=== PATIENT | male | born 1950 | race Caucasian/White ===

== ENCOUNTER 2019-01-14 00:38 | Inpatient (IN) | payer MEDICARE, SELFPAY | END 2019-01-19 16:10 | disposition home or self-care (01) | DRG 392 | PROVIDERS: Admitting Provider Family Medicine; Emergency Provider Family Medicine; PCP Internal Medicine; Visit Provider Internal Medicine | DX: K57.32 Diverticulitis of large intestine without perforation or abscess without bleeding (principal); I48.0 Paroxysmal atrial fibrillation; E11.9 Type 2 diabetes mellitus without complications; I25.10 Atherosclerotic heart disease of native coronary artery without angina pectoris; J44.9 Chronic obstructive pulmonary disease, unspecified; K22.70 Barrett's esophagus without dysplasia; D50.9 Iron deficiency anemia, unspecified; Z95.5 Presence of coronary angioplasty implant and graft | CPT/HCPCS: 36415; 71045; 74177; 80048; 80053; 81001; 83605; 83690; 83735; 84443; 85025; 85027; 86141; 87040; 87077; 87186; 93005; 96361; 96365; 96375; 99285; A9270; J0131; J0282; J1650; J2405; J2543; J7030; Q9967 ==

== ENCOUNTER 2019-10-17 08:48 | Emergency (ER) | payer MEDICARE, SELFPAY ==
--- NOTE | ~2019-10-17 | CT_ITS ---
EXAMINATION: CT abdomen pelvis wo con DATE: 10/17/2019 09:46 INDICATION: Left flank pain. Hematuria. TECHNIQUE: Computed tomography (CT) of the abdomen and pelvis was performed without intravenous contr ast. Automated exposure control and iterative reconstruction technique were employed. The dose-length product was 722.33 mGy-cm. COMPARISON: CT abdomen 04/13/2019 FINDINGS: The visualized portions of the lung bases are clear without pneumonia or pleural effusion. The heart size is normal. There are coronary artery calcifications. No pericardial effusion. There is a small sliding hiatal hernia. There is diffuse hepatic steatosis. The gallbladder, spleen, and adre nal glands are normal. There is a punctate calcification in the pancreas, consistent with chronic dejesus creatitis. There are cysts in the kidneys measuring up to 6.8 cm on the left. There is a 3.1 cm hemor rhagic cyst in right kidney. There are 6 stones in right kidney measuring up to 4 mm. There are 2 sto susanna in left kidney measuring up to 3 mm. The prostate is severely enlarged. There is a left inguinal hernia containing fat. There is diverticulosis of the colon without evidence of diverticulitis. There are no dilated loops of bowel. The appendix is normal. There are no pathologically enlarged lymph no mary. There is no free intraperitoneal fluid. There is severe lower lumbar spondylosis. IMPRESSION: 1. Bilateral nonobstructing kidney stones. 2. Small sliding hiatal hernia. 3. Left inguinal hernia containing fat. Reviewed, dictated and finalized at location A.
[2019-10-17 08:52] VITALS: BP 171/80; PULSE 92; RESP 20; TEMP 37.1; O2SAT 99
--- NOTE | 2019-10-17 09:10 | ED.MALEGU ---
HPI - Male Genitourinary General Chief complaint: Urogenital-Male Stated complaint: blood in urine Time Seen by Provider: 10/17/19 08:56 Source: patient Mode of arrival: ambulatory Limitations: no limitations History of Present Illness HPI Narrative: Patient is a 69-year-old male who presents to the emergency department with complaint of hematuria. Patient reports onset of symptoms this morning. Patient states he on occasion will notice a red spot in his underwear or blood in his semen, but has not had any issues with mirian hematuria until this morning. Patient has a history of kidney stones and states over the last couple of weeks he has been noticing left lateral flank pain intermittently. Patient reports that the pain is mild. He is on Xarelto for atrial fibrillation. Patient denies any dysuria, blood clots in his urine, or difficulty urinating aside from some mild hesitation in starting his stream in the morning due to his enlarged prostate. Patient denies any symptoms of urinary retention. Patient denies any fever, chills, or sweats. MD Complaint: other (Hematuria) Location: left flank Severity: mild Quality: dull Associated symptoms: Reports blood in urine Related Data Home Medications Medication Instructions Recorded Confirmed atorvastatin 40 mg tablet 40 mg PO DAILY 04/24/19 calcium polycarbophil 625 mg tablet 1,250 mg PO .qhs tablet 04/24/19 ferrous sulfate 325 mg (65 mg 325 mg PO BID 04/24/19 iron) tablet losartan 25 mg tablet 25 mg PO DAILY 04/24/19 metformin 500 mg tablet,extended 1,000 mg PO QPM tablet 04/24/19 release 24hr omeprazole 40 mg capsule,delayed 40 mg PO DAILY 04/24/19 release rivaroxaban 20 mg tablet 20 mg PO DAILY 04/24/19 sotalol 80 mg tablet 80 mg PO BID tablet 04/25/19 Allergies Allergy/AdvReac Type Severity Reaction Status Date / Time RAFFI Inhibitors Allergy Mild Cough Verified 10/17/19 08:54 ramipril Allergy Unknown Cough Verified 10/17/19 08:54 Review of Systems Review of Systems: All systems reviewed & are unremarkable except as noted in HPI and below Constitutional: Constitutional: Denies chills, Denies excessive sweating and Denies fever(s) Gastrointestinal: Gastrointestinal: Denies nausea and Denies vomiting Genitourinary: Genitourinary: Reports hematuria, Denies dysuria and Reports flank pain Musculoskeletal: Musculoskeletal: Denies back pain [facility] Past Medical History Medical History 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 BPH (benign prostatic hyperplasia) Chronic GERD Coronary artery disease involving [place] coronary artery of [place] heart Diabetes type 2, controlled Hypertensive heart disease without congestive heart failure Kidney stones Mixed hyperlipidemia Paroxysmal A-fib Right kidney mass Surgical History Surgical History History of coronary artery stent placement Social History Social History Smoking status: Never smoker Second hand tobacco smoke exposure: No Alcohol intake: current Drinks per week: 1 Substance use: never Substance use type: does not use Gender identity (if verbalized by the patient): Male Exam Const: General: cooperative, no acute distress and alert Nutritional Appearance: obese Orientation/consciousness: patient oriented x3 Limitations: no limitations Eyes: Conjunctivae: conjunctivae normal Pupils: Equal, round and reactive pupils present Resp: Effort & Inspection: normal respiratory effort Auscultation: clear to auscultation bilaterally Cardio: Rate: regular rate Rhythm: regular rhythm GI: GI Palp: Yes Soft to palpation and No Tenderness to palpation present (GI) Auscultation: normal bowel sounds Skin: General skin exam: normal color Neuro: General: patient oriented x3 Cognition (Neuro): normal cognition Speech: no
--- NOTE | 2019-10-17 09:12 | PC.NURSE ---
Called lab to add on Pt, PTT, INR.
[2019-10-17 09:14] LABS: Basophils Absolute Auto 0.1 K/mm3 (0.0-0.1); Basophils Percent Auto 1.6 % (0.2-1.2); Eosinophils Absolute Auto 0.2 K/mm3 (0-0.3); Eosinophils Percent Auto 2.7 % (0-4.4); Immature Granulocyte Absolute 0.02 K/mm3 (0.00-0.031); Immature Granulocyte Percent A 0.3 % (0-0.5); Lymphocytes Percent Auto 25.5 % (18.3-44.2); Mean Corpuscular Hemoglobin 30.6 pg (26-34); Mean Corpuscular Volume 90.1 fl (80-100); Mean Platelet Volume 9.6 fl (7.4-10.4); Monocytes Absolute Auto 0.8 K/mm3 (0.1-0.6); Monocytes Percent Auto 11.5 % (2.6-8.5); Neutrophils Absolute Auto 4.1 K/mm3 (1.3-6.7); Neutrophils Percent Auto 58.4 % (45.5-73.1); Platelet Count Result 283 k/mm3 (150-375); Red Blood Count 5.55 M/mm3 (4.6-6.20); Red Cell Distribution Width 13.2 % (11.5-14.5); White Blood Count 7.1 K/mm3 (4.5-10.0)
[2019-10-17 09:19] LABS: Add Urine Microscopic? YES; Appearance Urine Cloudy (Clear); Bilirubin Urine Negative (Negative); Blood Urine 3+ (Negative); Color Urine Red (Yellow); Glucose Urine UA Negative (Negative); Ketones Urine Negative (Negative); Leukocyte Esterase Ur Negative LEU/UL (Negative); Mucus Urine Rare /lpf; Nitrate Urine Positive (Negative); Protein Urine 2+ mg/dL (Negative); RBC Urine >75 /hpf (0-2); Squamous Epithelial Cell Urine Few /hpf (Few); Urobilinogen Urine Negative mg/dL (<2.0); WBC Clumps Urine Present /HPF; WBC Urine >75 /hpf
[2019-10-17 09:26] LABS: INR 1.4
[2019-10-17 09:27] LABS: Partial Thromboplastin Time 31.4 SECONDS (22.3-36.8)
[2019-10-17 09:29] LABS: Blood Urea Nitrogen 15 mg/dL (9-20); Calcium 9.4 mg/dL (8.4-10.2); Carbon Dioxide 26 mmol/L (22-30); Chloride 104 mmol/L (98-107); Estimated Glomerular Filt Rate > 60; Glucose 152 mg/dL (75-110); Potassium 4.4 mmol/L (3.4-5.0); Sodium 138 mmol/L (137-145)
[2019-10-17 10:49] VITALS: BP 165/85; PULSE 84; RESP 17; O2SAT 97
== END 2019-10-17 10:45 | disposition home or self-care (01) ==
PROVIDERS: Emergency Provider Emergency Medicine; PCP Family Medicine
DX: N30.01 Acute cystitis with hematuria (principal); Z79.01 Long term (current) use of anticoagulants; I48.0 Paroxysmal atrial fibrillation; N40.0 Benign prostatic hyperplasia without lower urinary tract symptoms; K22.70 Barrett's esophagus without dysplasia; K21.9 Gastro-esophageal reflux disease without esophagitis; E11.9 Type 2 diabetes mellitus without complications; I11.9 Hypertensive heart disease without heart failure; E78.2 Mixed hyperlipidemia; Z87.442 Personal history of urinary calculi; Z95.5 Presence of coronary angioplasty implant and graft; N20.0 Calculus of kidney; K44.9 Diaphragmatic hernia without obstruction or gangrene; K40.90 Unilateral inguinal hernia, without obstruction or gangrene, not specified as recurrent
CPT/HCPCS: 36415; 74176; 80048; 81001; 85025; 85610; 85730; 87077; 87086; 87088; 87186; 96365; 99284; J0696

== ENCOUNTER 2020-01-17 12:24 | Outpatient (CLI) | payer MEDICARE, SELFPAY ==
--- NOTE | ~2020-01-17 | XR_ITS ---
XR abdomen/kub 1V DATE: 01/17/2020 12:46 INDICATION: Right flank pain. Gross hematuria. TECHNIQUE: AP projection, 2 views COMPARISON: 01/17/2020 CT abdomen pelvis noncontrast examination FINDINGS: Several very faintly calcified lower pole right renal calculi are identified. Additional bi lateral calculi demonstrated on 10/17/2019 CT noncontrast examination of the abdomen and pelvis are no t radiographically evident. The psoas shadows are intact. No visceromegaly is detected. The bowel gas pattern is unremarkable, wi thout evidence of obstruction. Mild osteitis pubis. There are degenerative changes at the sacroiliac joints as well as some degenera tive changes of the thoracic and lumbar spine. IMPRESSION: Small faintly calcified lower pole right renal nonobstructing stones Reviewed, dictated and finalized at Location A. Reviewed, dictated and finalized at location A. IMPRESSION: Small faintly calcified lower pole right renal nonobstructing stone s
--- NOTE | ~2020-01-17 | CT_ITS ---
EXAMINATION: CT abdomen pelvis wo/w con DATE: 01/17/2020 13:51 INDICATION: Hematuria. Right flank pain. TECHNIQUE: Computed tomography (CT) of the abdomen and pelvis was performed with 100 mL Omnipaque-350 intravenous contrast. Automated exposure control and iterative reconstruction technique were employe d. The dose-length product was 3100.22 mGy-cm. COMPARISON: 10/17/2019 FINDINGS: Lung bases are clear. Heart size is normal. Atherosclerotic coronary artery calcifications. No perica rdial or pleural effusion. Small sliding-type hiatal hernia. Liver, gallbladder, spleen, pancreas and bilateral adrenal glands are normal. There is prominent colonic diverticulosis with a sigmoid and de scending colon predominance. There is no adjacent inflammatory change to suggest diverticulitis. Sma ll bowel and appendix are normal. Prostatomegaly. Small fat-containing left inguinal hernia. No free intraperitoneal gas or fluid. No pathologically enlarged abdominal or pelvic lymphadenopathy. Moderat e degenerative skeletal changes at the L5-S1 disc space and bilateral sacroiliac joints. Bilateral nephrolithiasis with 8 stones measuring up to 2-3 mm in the right kidney and 4 stones measu ring up to 3 mm in the left kidney. There is a 5 x 4 x 3 mm obstructing stone at the distal right ure ter situated approximately 3 cm proximal to the ureterovesicular junction with mild right hydroureter onephrosis and slight asymmetric delay in the excretion of contrast relative to the contralateral lef t kidney. There is mild periureteral stranding and mucosal enhancement along the distal right ureter consistent with inflammation which could be directly related to the stone or secondary ascending urin travis tract infection. Multiple bilateral nonenhancing parenchymal and parapelvic cysts both kidneys. T here is excreted contrast filling a small calyceal diverticulum at the site of focal cortical scarrin g at the lower pole of the left kidney. The entire left ureter is opacified with contrast with no celso dent filling defects or urothelial irregularities. Bladder is normal. IMPRESSION: 1. Bilateral nephrolithiasis with obstructing 5 mm stone at the distal right ureter with mild right h ydroureteronephrosis. There is associated urothelial enhancement at the distal right ureter and would correlate with urinalysis to exclude associated urinary tract infection. 2. Diverticulosis. 3. Small sliding-type hiatal hernia. 4. Small fat-containing left inguinal hernia. Reviewed, dictated and finalized at location A. IMPRESSION: 1. Bilateral nephrolithiasis with obstructing 5 mm stone at the distal right ur eter with mild right hydroureteronephrosis. There is associated urothelial enha ncement at the distal right ureter and would correlate with urinalysis to exclu de associated urinary tract infection. 2. Diverticulosis. 3. Small sliding-type hiatal hernia. 4. Small fat-containing left inguinal hernia.
[2020-01-17 13:25] LABS: Estimated Glomerular Filt Rate 46
== END 2020-01-17 12:25 | disposition home or self-care (01) ==
LOC: ANHIMG 12:33
PROVIDERS: PCP Family Medicine; Visit Provider Nurse Practitioner Adult Health
DX: R31.0 Gross hematuria (principal); N20.0 Calculus of kidney; N13.30 Unspecified hydronephrosis; K57.90 Diverticulosis of intestine, part unspecified, without perforation or abscess without bleeding; K44.9 Diaphragmatic hernia without obstruction or gangrene; K40.90 Unilateral inguinal hernia, without obstruction or gangrene, not specified as recurrent
CPT/HCPCS: 36415; 74018; 74178; Q9967

== ENCOUNTER 2020-01-19 01:57 | Outpatient (CLI) | payer MEDICARE, SELFPAY ==
[2020-01-19 18:01] LABS: SARS-CoV-2 RNA PCR Negative
== END 2020-01-19 01:58 | disposition home or self-care (01) ==
LOC: ANHCOVIDDT 01:59
PROVIDERS: PCP Family Medicine; Visit Provider Urology
DX: Z01.812 Encounter for preprocedural laboratory examination (principal); Z20.828 Contact with and (suspected) exposure to other viral communicable diseases
CPT/HCPCS: 87635; C9803; U0003

== ENCOUNTER 2020-01-22 04:22 | Day surgery (SDC) | payer MEDICARE, SELFPAY ==
[2020-01-18 13:09] VITALS: BMI 35.9
[2020-01-22] VITALS (8 sets, daily range): BP systolic 102–145; BP diastolic 62–87; PULSE 67–80; RESP 12–20; TEMP 35.9–36.6; O2SAT 96–99
--- NOTE | ~2020-01-22 | XR_ITS ---
EXAMINATION: XR retrograde pyelo w/stent RT EXAM DATE: 01/22/2020 15:25 INDICATION: Right ureteral stone. TECHNIQUE: Fluoroscopy used during XR retrograde pyelo w/stent RT performed by Dr. Galdino gandara MD. The DAP for this procedure was 1.4 mGym2. FINDINGS: Right ureter was cannulated, injected. There is mild right-sided hydronephrosis. A double- J ureteral stent was placed. Correlate with procedure note. IMPRESSION: Fluoroscopy used during XR retrograde pyelo w/stent RT. Reviewed, dictated and finalized at location B.
--- NOTE | ~2020-01-22 | CT_ITS ---
EXAMINATION: CT abdomen pelvis wo con DATE: 01/22/2020 13:19 INDICATION: Right ureteral calculus TECHNIQUE: Computed tomography (CT) of the abdomen and pelvis was performed without intravenous contr ast. The dose-length product (DLP) was 885.74 mGy-cm. Automated exposure control and iterative recons truction technique were employed. COMPARISON: 01/17/2020 FINDINGS: The lung bases are clear. The heart size is normal. Coronary artery atherosclerosis is note d. The liver, spleen, pancreas, gallbladder, and adrenal glands are normal. There is a small sliding hiatal hernia. There is a 6 mm stone in the right distal ureter which causes mild right hydroureteron ephrosis. Hyperdense material in the right ureter could reflect hemorrhage. Multiple nonobstructing r ight kidney stones are present which measure 2 to 3 mm. Nonobstructing stones of the left kidney elana ure up to 4 mm. Cysts of the kidneys measure up to 6.7 cm on the left. No pathologically enlarged abd ominal or pelvic lymph nodes are identified. Colonic diverticulosis is present without evidence of di verticulitis. There is enlargement and calcification of the prostate. A fat-containing left inguinal hernia is noted. There is no free intraperitoneal gas or evidence of bowel obstruction. There is mode rate lumbar spondylosis. IMPRESSION: 1. 6 mm stone of the right distal ureter with mild right hydroureteronephrosis. Hyperattenuating mate rial in the right ureter likely reflects hemorrhage. 2. Bilateral nephrolithiasis. Reviewed, dictated and finalized at location A. IMPRESSION: 1. 6 mm stone of the right distal ureter with mild right hydroureteronephrosis. Hyperattenuating material in the right ureter likely reflects hemorrhage. 2. Bilateral nephrolithiasis.
[2020-01-22] MEDS: LACTATED RINGERS 1,000 ML 30 ML IV CONT ×2 (11:24→15:32)
[2020-01-22 11:31] LABS: Glucose Point of Care 133 (65-105)
--- NOTE | 2020-01-22 12:26 | WPDANESEPPF ---
Anes - Initial Pre Proc Eval Procedure: Operation Date: 01/22/20 13:00 Proposed Procedures p Cystoscopy, Right Ureteroscopy, Right Stone Extraction, Possible Right Stent Placement, Possible Right Retrograde Pyelogram - Galdino Reddy MD s Holmium Laser Procedure - Galdino Reddy MD Date/Time: 01/22/20 12:26 Surgeon: Galdino Reddy MD Pre Op Diagnosis: right ureteral stone Patient Data Age: 70 Gender: M Height: 5 ft 10 in Weight: 122 kg Last Vital Signs Temp 35.9 C L 01/22/20 11:32 Pulse 77 01/22/20 11:32 BP 138/62 01/22/20 11:32 Pulse Ox 97 01/22/20 11:32 Allergies Allergy/AdvReac Type Severity Reaction Status Date / Time RAFFI Inhibitors Allergy Mild Cough Verified 12/12/19 08:55 ramipril Allergy Unknown Cough Verified 12/12/19 08:55 Home Medications Medication Instructions Recorded Confirmed Type atorvastatin 40 mg tablet 40 mg PO DAILY 04/24/19 01/18/20 History calcium polycarbophil 625 mg tablet 1,250 mg PO .qhs tablet 04/24/19 01/18/20 History ferrous sulfate 325 mg (65 mg 325 mg PO BID 04/24/19 01/18/20 History iron) tablet metformin 500 mg tablet,extended 1,000 mg PO QPM tablet 04/24/19 01/18/20 History release 24hr omeprazole 40 mg capsule,delayed 40 mg PO DAILY 04/24/19 01/18/20 History release rivaroxaban 20 mg tablet 20 mg PO DAILY 04/24/19 01/18/20 History sotalol 80 mg tablet 80 mg PO BID tablet 04/25/19 01/18/20 History trazodone 100 mg tablet 100 mg PO .QHS #90 tablet 10/08/19 01/18/20 Rx losartan 50 mg tablet 50 mg PO BID #90 tablet 12/12/19 01/18/20 Rx Laboratory Tests 01/22/20 11:26 POC Capillary Glucose 133 mg/dl H mg/dl (65-105) Patient hx anesthesia problems: none Family hx anesthesia problems: none PMFSH Past Medical History Medical History 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 BPH (benign prostatic hyperplasia) Chronic GERD Coronary artery disease involving [place] coronary artery of [place] heart Diabetes type 2, controlled Hypertensive heart disease without congestive heart failure Kidney stones Mixed hyperlipidemia Paroxysmal A-fib Right kidney mass Surgical History Surgical History History of coronary artery stent placement Social History Social History Smoking status: Never smoker Second hand tobacco smoke exposure: No Alcohol intake: current Drinks per week: 1 Alcohol use details: 1 glass wine/week Substance use: never Substance use type: does not use Living arrangements: with family Gender identity (if verbalized by the patient): Male Spiritual care concerns: No Anes - Eval Final PreProcedure Day of Procedure 01/22/20 12:26 Patient weight: obese Heart: regular rate and rhythm Lungs: clear to auscultation Airway: Mallampati scale class II Neurological: alert and oriented Last oral intake: >/= 8 hours ASA classification: III Emergent: no Anesthetic plan: proceed Anesthesia type and monitoring: general LMA and standard monitoring Informed Consent: The patient's anesthetic plan and its attendant risks and benefits were discussed with the patient/family/POA. Questions were solicited and answers provided to the satisfaction of the patient/family/POA.
--- NOTE | 2020-01-22 12:40 | WPDHPUPDATE1 ---
History and Physical Update Update Date/Time: 01/22/20 12:40 History and Physical has been reviewed, including an updated exam of the patient. There are NO changes in the patient's condition. Risks, benefits, and alternatives have been discussed and questions answered. Patient agrees to proceed with procedure.
--- NOTE | 2020-01-22 13:23 | SUR.PREOP ---
1304- pt to CT to have a ABD and pelvis CT. his , Kayleigh sebastian
--- NOTE | 2020-01-22 14:00 | SUR.PREOP ---
1350- Lalit RN called to Pre op area to update pt is going to surgery today. pt updated and Kayleigh, called to update.
--- NOTE | 2020-01-22 14:15 | WPDHPUPDATE1 ---
History and Physical Update Update Date/Time: 01/22/20 14:15 History and Physical has been reviewed, including an updated exam of the patient. There are NO changes in the patient's condition. Risks, benefits, and alternatives have been discussed and questions answered. Patient agrees to proceed with procedure. Plan for cystoscopy, right ureteroscopy, right rpg, stone extraction, possible holmium laser and stent placement.
[2020-01-22] MEDS: ceFAZolin 2 GM/D5W 50 ML 2 GM/50 ML BAG IVPB (14:29)
[2020-01-22] MEDS: LIDOCAINE HCL 2% GEL UROJET 10 ML PKG MUCOUS MEM (14:44)
--- NOTE | 2020-01-22 15:22 | P.OP_ITS ---
Procedure Note - Detailed Date of procedure: 01/22/20 Pre-op diagnosis: right ureteral stone Post-op diagnosis: same Procedure performed: cystoscopy, right retrograde pyelogram, right ureteroscopy with stone extraction, right ureteral stent placement 4.8 [place] contour Description of procedure: patient is taken to the operative suite and correctly identified. Once anesthesia was obtained he was placed in the dorsal lithotomy position and prepped and draped usual sterile fashion. Twenty-two [place] scope inserted into the bladder his enlarged obstructing prostate with an elevated median bar. He also has a median sized middle lobe. The right ureteral orifice was visualized it was somewhat difficult to cannulate due to the angle from the enlarged prostate. We were able to manipulate a Glidewire up to the kidney. We then placed a rigid ureteral scope into the orifice but could not manipulate it up more proximally. We thus placed in ureteral access sheath. A flexible ureteral scope was inserted. He did have some old blood in the ureter. The stone was visualized. Using escape basket were able to retrieve in its entirety and sent for analysis. Pyelogram was then performed to confirm placement of the stent in the renal pelvis. A 4.8 contour stent was then placed with the proximal end coiled in the renal pelvis and the distal end in the bladder. Bladder is drained 2% viscous lidocaine was inserted urethra. Due to the enlarged prostate it did use. We placed an [address] connected to continuous bladder irrigation. Will see if we can wean in recovery room. If it clears will go home with a Gr catheter and have it removed in the morning. He will then follow up in a week's time for stent removal. He also had numerous small little bladder calculi measuring approximately 1 mm each. These were ext racted. Anesthesia: GLMA Surgeon: Galdino Reddy MD Drains: Yes Packing: No Pathology: yes Complications: No immediate complications Condition: stable Disposition: PACU
--- NOTE | 2020-01-22 18:21 | SUR.PHASEII ---
No more vitals taken after 1709. Patient and spouse given d/c instructions including step by step of care for a catheter and removal of a catheter.
== END 2020-01-22 17:55 | disposition home or self-care (01) ==
PROVIDERS: PCP Family Medicine; Visit Provider Urology
PROC: (CPT 52352; principal; 2020-01-22 13:00)
DX: N20.1 Calculus of ureter (principal); R31.0 Gross hematuria
CPT/HCPCS: 52332; 74176; 74420; 82365; 88300; A9270; C1758; C1769; C1894; C2617; J0690; J1100; J2250; J2370; J2405; J2704; J3010; J7120; Q9966

== ENCOUNTER 2020-01-31 11:23 | Emergency (ER) | payer MEDICARE, SELFPAY ==
--- NOTE | ~2020-01-31 | XR_ITS ---
EXAMINATION: XR chest 1V portable DATE: 01/31/2020 12:47 INDICATION: Fever TECHNIQUE: frontal view of the chest was obtained. COMPARISON: Chest radiograph dated 01/14/2019 FINDINGS: Chronic mild linear discoid atelectasis/scarring at the lateral left lower lung zone. No new airspace opacities, pulmonary edema, pleural effusion or pneumothorax. The cardiomediastinal silhouette is no rmal. IMPRESSION: 1. Chronic mild lingular discoid atelectasis/scarring. Reviewed, dictated and finalized at location A.
[2020-01-31 11:31] VITALS: BP 133/77; PULSE 92; RESP 20; TEMP 37.8; O2SAT 98
[2020-01-31 11:40] LABS: Glucose Point of Care 136 (65-105)
--- NOTE | 2020-01-31 11:48 | ED.GENADULT ---
HPI - General Adult General Chief complaint: Urogenital-Male Stated complaint: FEVER S/P STONE RETRIEVAL 18AUG Time Seen by Provider: 01/31/20 11:30 Source: RN notes reviewed History of Present Illness HPI narrative: Patient presents emergency department from home for fever. Patient states he developed fever 2 days ago. Patient states he has a history of having a kidney stone removal by Dr. Reddy on the of the month. He denies having any cough shortness of breath abdominal pain nausea vomiting diarrhea or any other symptoms. States he took ibuprofen today but denies any Tylenol use Related Data Home Medications Medication Instructions Recorded Confirmed atorvastatin 40 mg tablet 40 mg PO DAILY 04/24/19 01/18/20 calcium polycarbophil 625 mg tablet 1,250 mg PO .qhs tablet 04/24/19 01/18/20 ferrous sulfate 325 mg (65 mg 325 mg PO BID 04/24/19 01/18/20 iron) tablet metformin 500 mg tablet,extended 1,000 mg PO QPM tablet 04/24/19 01/18/20 release 24hr omeprazole 40 mg capsule,delayed 40 mg PO DAILY 04/24/19 01/18/20 release rivaroxaban 20 mg tablet 20 mg PO DAILY 04/24/19 01/18/20 sotalol 80 mg tablet 80 mg PO BID tablet 04/25/19 01/18/20 Allergies Allergy/AdvReac Type Severity Reaction Status Date / Time RAFFI Inhibitors Allergy Mild Cough Verified 01/31/20 11:39 ramipril Allergy Unknown Cough Verified 01/31/20 11:39 Review of Systems Review of Systems: Narrative: Gen.: Reports fever ENT: Denies congestion Respiratory: Denies shortness of breath or cough CV: Denies chest pain or palpitations GI: Denies abdominal pain nausea, emesis or diarrhea denies burning, urgency, frequency or hematuria, reports recent kidney stone Musculoskeletal: Denies back pain or muscle pain Neuro: Denies numbness, tingling, weakness or focal weakness Skin: Denies rash Except as documented, all other systems reviewed and negative PMFSH Past Medical History Medical History 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 BPH (benign prostatic hyperplasia) Chronic GERD Coronary artery disease involving [place] coronary artery of [place] heart Diabetes type 2, controlled Hypertensive heart disease without congestive heart failure Kidney stones Mixed hyperlipidemia Paroxysmal A-fib Right kidney mass Social History Social History Smoking status: Never smoker Second hand tobacco smoke exposure: No Alcohol intake: current Drinks per week: 1 Substance use: never Substance use type: does not use Gender identity (if verbalized by the patient): Male Spiritual care concerns: No Exam Narrative: Exam Narrative: APPEARANCE: No acute distress, nontoxic, resting in bed EYES: EOMI HEENT: Normocephalic, atraumatic, OMM RESPIRATORY: No respiratory distress Clear to auscultation bilaterally with no rhonchi wheezing or rales. CARDIOVASCULAR: Regular rate and rhythm without murmurs rubs or gallops. ABDOMINAL: Soft, nontender, nondistended, no rebound or guarding MUSCULOSKELETAl: Moves all extremities. No clubbing, cyanosis or edema. NEURO: Awake and alert. Following commands, speech normal, no focal deficits SKIN:: Warm, dry. No rashes lesions or abrasions PSYCHIATRIC: Normal affect/mood, Course Course Emergency Course: Reviewed old records Discussed with Dr. Monterroso presentation work-up. Recommends patient be started on Levaquin at this time with follow-up as an outpatient Discussed with patient results of workup and diagnosis. Discussed need for follow-up with primary care, proper use of medication, and reasons to return to the emergency department. Patient understands and agrees to current treatment plan patient states he is scheduled to get a outpatient COVID swab today will obtain swab while patient is in the ED Reviewed patient's medications patient is on sotalol will switch to Omnicef Vital Signs Vital signs: V
[2020-01-31] MEDS: SODIUM CHLORIDE 0.9% IV 1,000 ML 999 ML IV CONT (12:13)
[2020-01-31 12:23] LABS: Basophils Absolute Auto 0.1 K/mm3 (0.0-0.1); Basophils Percent Auto 0.6 % (0.2-1.2); Eosinophils Absolute Auto 0.1 K/mm3 (0-0.3); Eosinophils Percent Auto 0.3 % (0-4.4); Hematocrit 42.8 % (42.0-52.0); Hemoglobin 14.4 g/dL (14.0-18.0); Immature Granulocyte Absolute 0.13 K/mm3 (0.00-0.031); Immature Granulocyte Percent A 0.7 % (0-0.5); Lymphocytes Absolute Auto 1.13 K/mm3 (0.9-3.2); Lymphocytes Percent Auto 6.4 % (18.3-44.2); Mean Corpuscular HGB Conc 33.6 g/dl (32-36); Mean Corpuscular Hemoglobin 29.8 pg (26-34); Mean Corpuscular Volume 88.4 fl (80-100); Mean Platelet Volume 9.3 fl (7.4-10.4); Monocytes Absolute Auto 1.6 K/mm3 (0.1-0.6); Neutrophils Absolute Auto 14.7 K/mm3 (1.3-6.7); Platelet Count Result 337 k/mm3 (150-375); Red Blood Count 4.84 M/mm3 (4.6-6.20); White Blood Count 17.7 K/mm3 (4.5-10.0)
[2020-01-31 12:36] LABS: Lactic Acid Reflex 1.5 mmol/L (0.7-2.1)
[2020-01-31 12:37] LABS: Alanine Aminotransferase 26 U/L (4-50); Albumin Level 4.3 g/dL (3.5-5.1); Alkaline Phosphatase 104 U/L (38-126); Anion Gap 10 mmol/L (8-16); Aspartate Amino Transferase 33 U/L (17-59); Bilirubin,Total 1.1 mg/dL (0.2-1.3); Blood Urea Nitrogen 19 mg/dL (9-20); Calcium 9.3 mg/dL (8.4-10.2); Carbon Dioxide 21 mmol/L (22-30); Chloride 100 mmol/L (98-107); Estimated CRCL calculation 76 ml/min; Estimated Glomerular Filt Rate > 60; Glucose 138 mg/dL (75-110); Potassium 3.9 mmol/L (3.4-5.0); Sodium 131 mmol/L (137-145)
[2020-01-31 12:38] LABS: Add Urine Microscopic? YES; Appearance Urine Cloudy (Clear); Bacteria Urine Trace /hpf; Bilirubin Urine Negative (Negative); Blood Urine 3+ (Negative); Color Urine Amber (Yellow); Glucose Urine UA Negative (Negative); Ketones Urine Negative (Negative); Leukocyte Esterase Ur 2+ LEU/UL (Negative); Mucus Urine Few /lpf; Nitrate Urine Negative (Negative); Protein Urine 2+ mg/dL (Negative); RBC Urine >75 /hpf (0-2); Specific Grav Ur 1.023 (1.001-1.035); Urobilinogen Urine Negative mg/dL (<2.0); WBC Urine 51-75 /hpf
[2020-01-31 13:17] VITALS: BP 120/66; PULSE 88; RESP 16; TEMP 37.2; O2SAT 97
[2020-02-01 00:41] LABS: SARS-CoV-2 RNA PCR Negative
== END 2020-01-31 13:56 | disposition home or self-care (01) ==
PROVIDERS: Emergency Provider Emergency Medicine; PCP Family Medicine
DX: N39.0 Urinary tract infection, site not specified (principal); Z20.828 Contact with and (suspected) exposure to other viral communicable diseases; K22.70 Barrett's esophagus without dysplasia; K21.9 Gastro-esophageal reflux disease without esophagitis; I25.10 Atherosclerotic heart disease of native coronary artery without angina pectoris; E11.9 Type 2 diabetes mellitus without complications; I11.9 Hypertensive heart disease without heart failure; Z87.442 Personal history of urinary calculi; E78.2 Mixed hyperlipidemia; I48.0 Paroxysmal atrial fibrillation; Z79.01 Long term (current) use of anticoagulants; Z79.84 Long term (current) use of oral hypoglycemic drugs
CPT/HCPCS: 36415; 71045; 80053; 81001; 82948; 83605; 85025; 87040; 87077; 87086; 87088; 87186; 87635; 96365; 96366; 96368; 99284; C9803; J0131; J1956; J7030; U0003

== ENCOUNTER 2020-02-28 10:17 | Outpatient (CLI) | payer MEDICARE, SELFPAY ==
--- NOTE | ~2020-02-28 | XR_ITS ---
XR abdomen/kub 1V 02/28/2020 10:36 Indication: Renal stones Procedure: KUB Comparison: 01/17/2020 Findings: There are punctate right renal stones. Bowel gas pattern nonobstructive. No stones are iden tified in the expected course of ureters. No acute osseous abnormality. Impression: 1: Right nephrolithiasis. Reviewed, dictated and finalized at location A. Impression: 1: Right nephrolithiasis.
== END 2020-02-28 10:18 | disposition home or self-care (01) ==
LOC: ANHIMG 10:22
PROVIDERS: PCP Family Medicine; Visit Provider Urology
DX: N20.1 Calculus of ureter (principal); N20.0 Calculus of kidney
CPT/HCPCS: 74018

== ENCOUNTER 2020-10-09 14:37 | Outpatient (CLI) | payer MEDICARE, SELFPAY ==
--- NOTE | ~2020-10-09 | XR_ITS ---
EXAMINATION: XR abdomen/kub 1V DATE: 10/09/2020 15:02 INDICATION: Gross hematuria. TECHNIQUE: A supine view of the abdomen on 2 radiographs was obtained. COMPARISON: CT abdomen and pelvis 10/09/2020 FINDINGS: There are no dilated loops of bowel. The kidneys are obscured by bowel. IMPRESSION: 1. No visible urolithiasis. Kidneys obscured by bowel. Reviewed, dictated and finalized at location A.
--- NOTE | ~2020-10-09 | CT_ITS ---
EXAMINATION: CT abdomen pelvis wo/w con DATE: 10/09/2020 15:39 INDICATION: Gross hematuria. TECHNIQUE: Computed tomography (CT) of the abdomen and pelvis was performed without and with intraven ous contrast using a total of 130 mL Omnipaque-350 intravenous contrast with a double-bolus technique for simultaneous opacification of the renal parenchyma and renal collecting system. Automated exposu re control and iterative reconstruction technique were employed. The dose-length product was 2816.89 mGy-cm. COMPARISON: CT abdomen and pelvis 01/22/2020 FINDINGS: The visualized portions of the lung bases demonstrate mild atelectasis. There is a pneumatocele in ri ght lower lobe. No pleural effusion. The heart size is normal. There are coronary artery calcificatio ns. No pericardial effusion. There is bilateral gynecomastia. There is a small sliding hiatal hernia. There is diffuse hepatic steatosis. The liver, spleen, pancreas, and adrenal glands are normal. Ther e are simple cysts in the kidneys measuring up to 6.9 cm on the left. There is a 3.0 cm hemorrhagic c yst in right kidney. There is an 11 mm hemorrhagic cyst in right kidney. There are approximately 7 st ones in right kidney measuring up to 2 mm. There are parenchymal calcifications in right kidney. Ther e are approximately 4 stones in left kidney measuring up to 3 mm. There is a small area of focal volu me loss in left kidney. The ureters are well opacified and are normal. The bladder is normal. The pro state is severely enlarged. There is a left inguinal hernia containing fat. There is diverticulosis o f the colon without evidence of diverticulitis. The appendix is normal. There is an umbilical hernia containing fat. There are no pathologically enlarged lymph nodes. There is no free intraperitoneal fl uid. There is severe lower lumbar spondylosis. IMPRESSION: 1. Small bilateral nonobstructing kidney stones. 2. Severely enlarged prostate. Reviewed, dictated and finalized at location A.
[2020-10-09 15:17] LABS: Estimated Glomerular Filt Rate > 60
== END 2020-10-09 14:38 | disposition home or self-care (01) ==
PROVIDERS: PCP Family Medicine; Visit Provider Urology
DX: R31.0 Gross hematuria (principal); N40.0 Benign prostatic hyperplasia without lower urinary tract symptoms; N20.0 Calculus of kidney
CPT/HCPCS: 74018; 74178; Q9967

== ENCOUNTER → 2021-05-12 13:34 | Outpatient (CLI) | payer MEDICARE, SELFPAY ==
--- NOTE | ~2021-05-12 | XR_ITS ---
EXAMINATION: XR chest 2V EXAM DATE: 05/12/2021 13:56 INDICATION: R05.3 - Chronic cough. TECHNIQUE: Frontal and lateral projections of the chest obtained and reviewed. Comparison is made to prior examination from 01/14/2019. FINDINGS: The lungs are clear. There are no pleural effusions. The cardiomediastinal silhouette is within normal limits. There is no pneumothorax suspected. The bones and soft tissues are unremarkab le. IMPRESSION: No acute cardiopulmonary findings. Reviewed, dictated and finalized at location A. G ROOM HAND
== END ==
PROVIDERS: PCP Family Medicine; Visit Provider Family Medicine
DX: R05.3 Chronic cough (principal)
CPT/HCPCS: 71046

== ENCOUNTER 2021-07-14 00:51 | Day surgery (SDC) | payer MEDICARE, SELFPAY ==
[2021-07-06 14:27] VITALS: BMI 35.9
[2021-07-14 07:52] VITALS: BP 150/83; PULSE 63; RESP 20; TEMP 35.7; O2SAT 96
[2021-07-14] MEDS: LACTATED RINGERS 1,000 ML 150 ML IV CONT (08:05)
[2021-07-14 08:07] LABS: Glucose Point of Care 191 mg/dl (65-105)
--- NOTE | 2021-07-14 08:14 | WPDGICN ---
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 Stable on omeprazole 40mg p.o. daily. Plan is for surveillance EGD now on at 3 year intervals in the future. Continued anti-reflux measures encourage. Further recommendations will be given after endoscopy. GI Consult Note Consult date/time: 07/14/21 08:14 HPI: Neo Wooten is a 71 year old male Presents for screening EGD. Patient is known to have Ware's esophagus. Last endoscopy 5 years ago was unremarkable. Patient denies abdominal pain. He has had no bleeding. Family history is noncontributory. He has no difficulty swallowing. He denies heartburn while maintained on omeprazole 40mg p.o. daily. He presents today for screening exam. 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 BPH (benign prostatic hyperplasia) Chronic GERD Coronary artery disease involving [place] coronary artery of [place] heart Diabetes mellitus type II, uncontrolled Diabetes type 2, controlled Hypertensive heart disease without congestive heart failure Kidney stones Mixed hyperlipidemia Paroxysmal A-fib Right kidney mass Surgical History Surgical History History of coronary artery stent placement Social History Social History Smoking status: Never smoker Second hand tobacco smoke exposure: No Alcohol intake: current Drinks per week: 1 Alcohol use details: 1 glass wine/week Substance use: never Substance use type: does not use Living arrangements: with family Gender identity (if verbalized by the patient): Male Sexual Orientation (if Verbalized by the Patient): Straight or Heterosexual Spiritual care concerns: No Meds Home Medications and Allergies Home Medications Medication Instructions Recorded Confirmed Type atorvastatin 40 mg tablet 40 mg PO DAILY 04/24/19 07/06/21 History calcium polycarbophil 625 mg tablet 1,250 mg PO .qhs tablet 04/24/19 07/06/21 History ferrous sulfate 325 mg (65 mg 325 mg PO BID 04/24/19 07/06/21 History iron) tablet rivaroxaban 20 mg tablet 20 mg PO DAILY 04/24/19 07/06/21 History sotalol 80 mg tablet 80 mg PO BID tablet 04/25/19 07/06/21 History finasteride 5 mg tablet 5 mg PO DAILY 04/09/20 07/06/21 History omeprazole 40 mg capsule,delayed 40 mg PO DAILY #90 cap 05/11/21 07/06/21 Rx release metformin 500 mg tablet,extended 500 mg PO BID 90 Days #180 tablet 05/12/21 07/06/21 Rx release 24hr losartan 50 mg tablet 50 mg PO DAILY #90 tablet 06/09/21 07/06/21 Rx trazodone 100 mg PO HS 07/06/21 07/06/21 History Allergies Allergy/AdvReac Type Severity Reaction Status Date / Time ramipril Allergy Intermediate Cough Verified 07/14/21 07:51 RAFFI Inhibitors Allergy Mild Cough Verified 07/14/21 07:51 Vital Signs Vital Signs - 24 hr 07/14/21 07:52 Temperature 96.3 F L Pulse Rate 63 Respiratory Rate 20 Blood Pressure 150/83 H Pulse Oximetry 96 Exam Narrative: Physical exam reveals patient to be alert. Vital signs stable. HEENT exam is unremarkable. Patient is anicteric. Lungs are clear to auscultation and percussion. Heart is without murmur or extra sounds. Abdomen is obese. Bowel sounds are present soft nontender with no organomegaly. Digital external rectal exam deferred at this time.
--- NOTE | 2021-07-14 08:38 | WPDANESEPPF ---
Anes - Initial Pre Proc Eval Procedure: Operation Date: 07/14/21 09:00 Proposed Procedures p Esophagogastroduodenoscopy - Pavel Frank MD Date/Time: 07/14/21 08:38 Surgeon: Pavel Frank MD Pre Op Diagnosis: evangelista's esophagus Patient Data Age: 71 Gender: M Height: 1.78 m Weight: 114.3 kg Last Vital Signs Temp 96.3 F L 07/14/21 07:52 Pulse 63 07/14/21 07:52 Resp 20 07/14/21 07:52 BP 150/83 H 07/14/21 07:52 Pulse Ox 96 07/14/21 07:52 Allergies Allergy/AdvReac Type Severity Reaction Status Date / Time ramipril Allergy Intermediate Cough Verified 07/14/21 07:51 RAFFI Inhibitors Allergy Mild Cough Verified 07/14/21 07:51 Home Medications Medication Instructions Recorded Confirmed Type atorvastatin 40 mg tablet 40 mg PO DAILY 04/24/19 07/06/21 History calcium polycarbophil 625 mg tablet 1,250 mg PO .qhs tablet 04/24/19 07/06/21 History ferrous sulfate 325 mg (65 mg 325 mg PO BID 04/24/19 07/06/21 History iron) tablet rivaroxaban 20 mg tablet 20 mg PO DAILY 04/24/19 07/06/21 History sotalol 80 mg tablet 80 mg PO BID tablet 04/25/19 07/06/21 History finasteride 5 mg tablet 5 mg PO DAILY 04/09/20 07/06/21 History omeprazole 40 mg capsule,delayed 40 mg PO DAILY #90 cap 05/11/21 07/06/21 Rx release metformin 500 mg tablet,extended 500 mg PO BID 90 Days #180 tablet 05/12/21 07/06/21 Rx release 24hr losartan 50 mg tablet 50 mg PO DAILY #90 tablet 06/09/21 07/06/21 Rx trazodone 100 mg PO HS 07/06/21 07/06/21 History Laboratory Tests 07/14/21 07:59 POC Capillary Glucose 191 mg/dl H mg/dl (65-105) Patient hx anesthesia problems: none Family hx anesthesia problems: none Results Review: All pre-operative results and documents have been reviewed as part of the pre-operative evaluation. [facility] Past Medical History Medical History (Updated 05/12/21 @ 12:48 by Ranjan Mckee MD) Evangelista's esophagus without dysplasia BPH (benign prostatic hyperplasia) Chronic GERD Coronary artery disease involving [place] coronary artery of [place] heart Diabetes mellitus type II, uncontrolled Diabetes type 2, controlled Hypertensive heart disease without congestive heart failure Kidney stones Mixed hyperlipidemia Paroxysmal A-fib Right kidney mass Surgical History Surgical History History of coronary artery stent placement Social History Social History Smoking status: Never smoker Second hand tobacco smoke exposure: No Alcohol intake: current Drinks per week: 1 Alcohol use details: 1 glass wine/week Substance use: never Substance use type: does not use Living arrangements: with family Gender identity (if verbalized by the patient): Male Sexual Orientation (if Verbalized by the Patient): Straight or Heterosexual Spiritual care concerns: No Anes - Eval Final PreProcedure Day of Procedure 07/14/21 08:38 Patient weight: obese Heart: irregular rhythm Lungs: clear to auscultation Airway: Mallampati scale class II Neurological: alert and oriented Last oral intake: >/= 8 hours ASA classification: III Emergent: no Anesthetic plan: proceed Anesthesia type and monitoring: general GIVS and standard monitoring Results Review: All pre-operative results and documents have been reviewed as part of the pre-operative evaluation. Informed Consent: The patient's anesthetic plan and its attendant risks and benefits were discussed with the patient/family/POA. Questions were solicited and answers provided to the satisfaction of the patient/family/POA.
[2021-07-14 09:02] VITALS: BP 124/89; PULSE 75; RESP 20; O2SAT 96
[2021-07-14 09:12] VITALS: BP 143/80; PULSE 74; RESP 19; O2SAT 97
[2021-07-14 09:22] VITALS: BP 128/77; PULSE 71; RESP 17; O2SAT 97
== END 2021-07-14 09:35 | disposition home or self-care (01) ==
PROVIDERS: PCP Family Medicine; Visit Provider Internal Medicine Gastroenterology
PROC: 0DJ08ZZ Inspection of Upper Intestinal Tract, Via Natural or Artificial Opening Endoscopic (ICD-10-PCS; CPT 43235; principal; 2021-07-14 09:00)
DX: K22.70 Barrett's esophagus without dysplasia (principal); Z79.84 Long term (current) use of oral hypoglycemic drugs; N40.0 Benign prostatic hyperplasia without lower urinary tract symptoms; I25.10 Atherosclerotic heart disease of native coronary artery without angina pectoris; E11.9 Type 2 diabetes mellitus without complications; I10 Essential (primary) hypertension; E78.2 Mixed hyperlipidemia; I48.0 Paroxysmal atrial fibrillation; Z95.5 Presence of coronary angioplasty implant and graft; E66.9 Obesity, unspecified; Z68.36 Body mass index [BMI] 36.0-36.9, adult
CPT/HCPCS: 43239; 82948; 88305; 88313; J2704; J7120

== ENCOUNTER 2021-10-02 15:52 | Outpatient (CLI) | payer MEDICARE, SELFPAY ==
--- NOTE | ~2021-10-02 | XR_ITS ---
XR abdomen/kub 1V DATE: 10/02/2021 16:12 INDICATION: Left upper quadrant abdominal pain TECHNIQUE: 2 AP views COMPARISON: 10/09/2020 CT abdomen pelvis FINDINGS: There is a prominent amount of fecal material in the hepatic flexure and transverse and spl enic flexure areas. No bowel obstruction is noted. The psoas shadows are intact. No visceromegaly is evident. No significant abnormal calcification is d etected. Included skeletal structures are unremarkable. Mild discoid atelectasis or scarring at the left lung base. Osteopenia. IMPRESSION: Prominent amount fecal material in the colon; no bowel obstruction is evident Osteopenia Reviewed, dictated and finalized at Location A. Reviewed, dictated and finalized at location A.
== END 2021-10-02 15:53 | disposition home or self-care (01) ==
LOC: ANHIMG 15:57
PROVIDERS: PCP Family Medicine; Visit Provider Physician Assistant
DX: R10.12 Left upper quadrant pain (principal); M54.50 Low back pain, unspecified; Z87.442 Personal history of urinary calculi; M85.88 Other specified disorders of bone density and structure, other site
CPT/HCPCS: 74018

== ENCOUNTER → 2021-10-05 14:11 | Outpatient (CLI) | payer MEDICARE, SELFPAY ==
--- NOTE | ~2021-10-05 | CT_ITS ---
EXAMINATION: CT abdomen pelvis wo con DATE: 10/05/2021 14:28 INDICATION: N17.9 - Acute kidney failure, unspecified TECHNIQUE: Computed tomography (CT) of the abdomen and pelvis was performed without intravenous contr ast. Automated exposure control and iterative reconstruction technique were employed. The dose-length product was 1001.43 mGy-cm. COMPARISON: 10-09-20 FINDINGS: Lower thorax: Small hiatal hernia. Coronary artery calcifications. Liver: Normal. Biliary/Gallbladder: Gallbladder is normal. No bile duct dilation. Spleen: Normal. Pancreas: No mass or duct dilation. Adrenals:No mass. Kidneys: Multiple bilateral simple cysts and lesion are too small to characterize. Right hemorrhagic/ proteinaceous cyst. Multiple bilateral nonobstructive calculi. Moderate left nephric stranding pelvie ctasis, caliectasis, and ureterectasis. GI tract: No small or large bowel dilation. Normal appendix. Diverticulosis. Mesentery/Peritoneum: No ascites, mass, or free air. Retroperitoneum: No mass. Pelvis: 8 mm distal left ureteral stone. 7 mm left UVJ stone. Prostatomegaly. Bones/Soft Tissues: Left inguinal and umbilical hernias. No acute osseous finding. Additional Findings: None. IMPRESSION: 8 mm distal left ureteral stone, combined with a 7 mm left UVJ stone that cause moderate obstructive uropathy on the left. Reviewed, dictated and finalized at location K.
== END ==
PROVIDERS: PCP Family Medicine; Visit Provider Physician Assistant
DX: N17.9 Acute kidney failure, unspecified (principal); M54.50 Low back pain, unspecified; R10.32 Left lower quadrant pain; Z87.442 Personal history of urinary calculi; N20.1 Calculus of ureter
CPT/HCPCS: 74176

== ENCOUNTER 2021-10-08 01:45 | Day surgery (SDC) | payer MEDICARE, SELFPAY ==
--- NOTE | 2021-10-07 09:04 | PC.NURSE ---
Report to the Outpatient Waiting Room, entrance under the green pavilion located off [facility], at time _1245 on date ___10/08/21____. OR Time: ___1445 . - You and your visitor will be asked a series of questions to screen for COVID 19 for your protection. - Only one visitor is allowed at this time. - The patient visitor is requested to leave or wait in car when not with patient. - A mask is required within the hospital. Patients may have clear liquids (water, carbonated beverages, clear teas, apple juice) until 3 hours prior to surgery with a maximum of 20 ounces. - No food from midnight until time of surgery - Infants may have breast milk until 4 hours before surgery, infant formula 6 hours prior to surgery. - Children will be allowed to drink immediately following surgery. If applicable, please bring a bottle or sippy cup to assist with drinking. Juice, water, soda, and popsicles are readily available. For infants on formula, please bring formula the day of surgery. Pacifiers are allowed. Take the following medications with a SIP of water the morning of surgery: __AMOXICILLIN,SOTALOL_AND ZONISAMIDE Medications to discontinue per physician _PT STATES _XARELTO 2 DAYS PRE OP __PER DR WHALEY Date to take last dose Please no make-up, nail serbian, hairspray, perfume, deodorant, or body powder the day of surgery. No jewelry (including any body piercings) or valuables the day of surgery, leave them at home. Please take a shower or bath the night before, or the morning of, surgery with an antibacterial soap. Wear comfortable, loose fitting clothing. Children are encouraged to wear pajamas. - Jewelry must be removed prior to entering the operating room. Rings and piercings that are not removed may be cut off. - The hospital will not accept responsibility for valuables. - Please leave all valuables, including medications, at home the day of surgery. If you are going home after surgery, a licensed tilt tray driver must drive you home. - NO public transportation without another adult. - We recommend that an adult stay with you for 24 hours following discharge. - We also recommend that you do not drive, make important decision, drink alcoholic beverages, or take any drugs that were not prescribed by your health care provider for at least 24 hours after your discharge time. For Pediatric surgeries, we recommend two adults accompany the child home (only one inside the building at this time). Follow any additional instructions given to you from your surgeon. If you or anyone in your household have experienced Covid symptoms in the past week, please notify your surgeon or the nurse liaison at the phone number below for possible testing. Telephone instructions given to __PATIENT and asked if any additional questions and then verbalized understanding. Patient advised to call surgeon office or pre surgery nurse liaison [phone] if any additional questions.
[2021-10-07 09:06] VITALS: BMI 35.9
[2021-10-08] VITALS (8 sets, daily range): BP systolic 136–154; BP diastolic 77–91; PULSE 69–77; RESP 12–18; TEMP 36.4–36.9; O2SAT 92–99
--- NOTE | ~2021-10-08 | XR_ITS ---
EXAMINATION: XR retrograde pyelo w/stent LT DATE: 10/08/2021 15:01 INDICATION: Ureteral stones. TECHNIQUE: 7 intraoperative fluoroscopic views of the abdomen and pelvis were obtained. I was not pre sent. Fluoroscopy exposure time was 58 seconds. COMPARISON: CT abdomen and pelvis 10/05/2021 FINDINGS: There is contrast in the left ureter. The final images demonstrate a left internal ureteral stent in expected position. IMPRESSION: 1. Left internal ureteral stent in expected position. Reviewed, dictated and finalized at location A.
--- NOTE | 2021-10-08 06:17 | ECG_ITS ---
Measurements Intervals [place] Rate: 72 P: 35 OR: 152 QRS: 9 QRSD: 97 T: 56 QT: 416 QTc: 456 Interpretive Statements SINUS RHYTHM ATRIAL AND VENTRICULAR PREMATURE COMPLEXES EARLY PRECORDIAL R/S TRANSITION BORDERLINE ECG Electronically Signed On 10-08-2021 13:50:04 CDT by Jeff Yoon D.O.
--- NOTE | 2021-10-08 06:28 | WPDHPUPDATE1 ---
History and Physical Update Update Date/Time: 10/08/21 06:28 History and Physical has been reviewed, including an updated exam of the patient. There are NO changes in the patient's condition. Risks, benefits, and alternatives have been discussed and questions answered. Patient agrees to proceed with procedure.
[2021-10-08] MEDS: LACTATED RINGERS 1,000 ML 30 ML IV CONT (12:45)
[2021-10-08 13:21] LABS: Glucose Point of Care 112 mg/dl (65-105)
--- NOTE | 2021-10-08 13:29 | WPDANESEPPF ---
Anes - Initial Pre Proc Eval Procedure: Operation Date: 10/08/21 13:45 Proposed Procedures p Cystoscopy, Left Ureteroscopy, Left Stone Extraction, Possible Left Retrograde Pyelogram, Possible Left Stent Placement, Possible Holmium Laser Procedure - Kenroy Monterroso MD Date/Time: 10/08/21 13:29 Surgeon: Kenroy Monterroso MD Pre Op Diagnosis: ureteral stones Patient Data Age: 71 Gender: M Height: 1.78 m Weight: 111.6 kg Last Vital Signs Temp 98.4 F 10/08/21 13:00 Pulse 72 10/08/21 13:00 Resp 18 10/08/21 13:00 BP 148/87 H 10/08/21 13:00 Pulse Ox 97 10/08/21 13:00 Allergies Allergy/AdvReac Type Severity Reaction Status Date / Time ramipril Allergy Intermediate Cough Verified 10/08/21 13:22 RAFFI Inhibitors Allergy Mild Cough Verified 10/08/21 13:22 Home Medications Medication Instructions Recorded Confirmed Type atorvastatin 40 mg tablet 40 mg PO DAILY 04/24/19 10/07/21 History calcium polycarbophil 625 mg tablet 1,250 mg PO .qhs tablet 04/24/19 10/07/21 History ferrous sulfate 325 mg (65 mg 325 mg PO BID 04/24/19 10/07/21 History iron) tablet rivaroxaban 20 mg tablet 20 mg PO DAILY 04/24/19 10/07/21 History sotalol 80 mg tablet 80 mg PO BID tablet 04/25/19 10/07/21 History finasteride 5 mg tablet 5 mg PO DAILY 04/09/20 10/07/21 History omeprazole 40 mg capsule,delayed 40 mg PO DAILY #90 cap 05/11/21 10/07/21 Rx release metformin 500 mg tablet,extended 500 mg PO BID 90 Days #180 tablet 05/12/21 10/07/21 Rx release 24hr losartan 50 mg tablet 50 mg PO DAILY #90 tablet 09/07/21 10/07/21 Rx zonisamide 100 mg capsule 100 mg PO DAILY 09/14/21 10/07/21 History amoxicillin 875 mg-potassium 1 tablet PO Q12H #20 tablet 10/02/21 10/07/21 Rx clavulanate 125 mg tablet trazodone 100 mg tablet See Rx Instructions .ROUTE 10/07/21 10/07/21 Rx .COMPLEX #90 tablet Laboratory Tests 10/08/21 13:15 POC Capillary Glucose 112 mg/dl H mg/dl (65-105) Patient hx anesthesia problems: none Family hx anesthesia problems: none Results Review: All pre-operative results and documents have been reviewed as part of the pre-operative evaluation. 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 BPH (benign prostatic hyperplasia) Chronic GERD Coronary artery disease involving [place] coronary artery of [place] heart Diabetes mellitus type II, uncontrolled Diabetes type 2, controlled Essential tremor Hypertensive heart disease without congestive heart failure Kidney stones Mixed hyperlipidemia Obesity Paroxysmal A-fib Right kidney mass Surgical History Surgical History History of coronary artery stent placement Social History Social History Smoking status: Never smoker Second hand tobacco smoke exposure: No Alcohol intake: current Drinks per week: 1 Alcohol use details: 1 glass wine/week Substance use: never Substance use type: does not use Living arrangements: with family Gender identity (if verbalized by the patient): Male Sexual Orientation (if Verbalized by the Patient): Straight or Heterosexual Spiritual care concerns: No Anes - Eval Final PreProcedure Day of Procedure 10/08/21 13:29 Patient weight: obese Heart: regular rate and rhythm Lungs: clear to auscultation and normal air movement Airway: Mallampati scale Neurological: alert and oriented Last oral intake: >/= 8 hours ASA classification: III Emergent: no Anesthetic plan: proceed Anesthesia type and monitoring: general LMA and standard monitoring Results Review: All pre-operative results and documents have been reviewed as part of the pre-operative evaluation. Informed Consent: The patient's anesthetic plan and its attendant risks and benefits were discussed with the patient/family/POAMarnie Thapa
[2021-10-08] MEDS: ceFAZolin 2 GM/D5W 50 ML 2 GM/50 ML BAG IVPB (14:13)
[2021-10-08] MEDS: LIDOCAINE HCL 2% GEL UROJET 10 ML PKG MUCOUS MEM (14:36)
--- NOTE | 2021-10-08 15:14 | W.PM.PROC2 ---
Procedure Note - Detailed Date of Procedure 10/08/21 Pre-op Diagnosis Left ureteral stones Post-op Diagnosis Same Procedure Performed Cystoscopy, left ureteroscopy with laser lithotripsy, stone extraction, retrograde pyelogram and left stent placement Surgeon Kenroy Monterroso MD Anesthesia General Description of Procedure The patient was brought to the operative suite where he is prepped and draped in a routine sterile fashion while in the dorsal lithotomy position after the uneventful induction of a general LMA anesthetic. A 19F rigid cystoscope was placed in the bladder. There are no urethral strictures. His prostatic urethra measures, approximately, 3.0cm with moderate median lobe enlargement. The bladder mucosa was endoscopically normal without hyperemia or neoplasm. There was a single, orthotopic ureteral orifice bilaterally. A 0.035 glidewire was advanced into the left renal pelvis under fluoroscopy. The distal ureter was dilated with an 8F/10F ureteral dilator. Ureteroscopy was undertaken with a short tapered semi-rigid ureteroscope. One of his to 5-6 mm left ureteral stones had passed into his bladder, the other was still in the distal ureter, approximately 5-6 cm proximal to the UVJ. During ureteroscopy I fractured the stone into smaller pieces using a 273 micron Holmium laser fiber with the Holmium laser. I was able to then extract all the stone pieces using a 1.9F Escape, Nitinol, disposable stone basket. Due to the extent of this manipulation I did place a 4.8F double-J ureteral stent. The proximal coil of the stent was confirmed to be in the renal pelvis and the distal coil in the bladder. The patient's bladder was emptied and he was taken to the recovery room having tolerated this procedure well. Estimated Blood Loss 0 Drains Yes Packing No Pathology Yes Complications No immediate complications Condition Stable Disposition PACU
[2021-10-08 15:19] LABS: Glucose Point of Care 122 mg/dl (65-105)
== END 2021-10-08 16:59 | disposition home or self-care (01) ==
PROVIDERS: PCP Family Medicine; Visit Provider Urology
PROC: (CPT 52352; principal; 2021-10-08 13:45)
DX: N20.1 Calculus of ureter (principal); I25.118 Atherosclerotic heart disease of native coronary artery with other forms of angina pectoris; R31.0 Gross hematuria; R39.15 Urgency of urination; R35.0 Frequency of micturition; R42 Dizziness and giddiness; N39.0 Urinary tract infection, site not specified; N39.43 Post-void dribbling; N40.1 Benign prostatic hyperplasia with lower urinary tract symptoms; N52.01 Erectile dysfunction due to arterial insufficiency; R10.32 Left lower quadrant pain; R35.1 Nocturia; R39.12 Poor urinary stream; R39.89 Other symptoms and signs involving the genitourinary system; Z79.84 Long term (current) use of oral hypoglycemic drugs; Z79.01 Long term (current) use of anticoagulants; K22.70 Barrett's esophagus without dysplasia; K21.9 Gastro-esophageal reflux disease without esophagitis; E11.9 Type 2 diabetes mellitus without complications; R25.1 Tremor, unspecified; E78.2 Mixed hyperlipidemia; I48.0 Paroxysmal atrial fibrillation; Z95.5 Presence of coronary angioplasty implant and graft; E66.9 Obesity, unspecified; Z68.35 Body mass index [BMI] 35.0-35.9, adult
CPT/HCPCS: 52356; 74420; 82365; 82948; 88300; 93005; A9270; C1769; C2617; J0690; J2405; J2704; J3010; J7120; Q9966

== ENCOUNTER 2022-02-03 11:16 | Outpatient (CLI) | payer MEDICARE, SELFPAY ==
[2022-02-03 11:52] LABS: Uric Acid 5.4 mg/dL (3.5-8.5)
== END 2022-02-03 11:17 | disposition home or self-care (01) ==
PROVIDERS: PCP Family Medicine; Visit Provider Family Medicine
DX: M25.572 Pain in left ankle and joints of left foot (principal)
CPT/HCPCS: 36415; 84550

== ENCOUNTER → 2022-02-03 11:51 | Outpatient (CLI) | payer MEDICARE, SELFPAY ==
--- NOTE | ~2022-02-03 | XR_ITS ---
EXAM: XR ankle LT 2V DATE: 02/03/2022 12:03 HISTORY: M25.572 - Pain in left ankle and joints of left foot . COMPARISON: None available. FINDINGS: Slightly decreased mineralization. No fracture or dislocation. No lytic or blastic lesion. Dystrophic distal Achilles tendon calcification. Moderate plantar enthesopathy. Scattered vascular c alcification. Loss of the longitudinal arch. Joint spaces and physes are maintained. No erosion or pe riosteal change. Soft Tissue swelling medially. Ankle joint fluid. IMPRESSION: Pes planus. Moderate plantar enthesopathy. Dystrophic Achilles calcification, may represe nt old injury. Ankle joint effusion. Reviewed, dictated and finalized at location K. IMPRESSION: Pes planus. Moderate plantar enthesopathy. Dystrophic Achilles calc ification, may represent old injury. Ankle joint effusion.
== END ==
PROVIDERS: PCP Family Medicine; Visit Provider Family Medicine
DX: M25.572 Pain in left ankle and joints of left foot (principal); M77.32 Calcaneal spur, left foot; M25.472 Effusion, left ankle
CPT/HCPCS: 73600

== ENCOUNTER 2022-07-31 09:43 | Outpatient (CLI) | payer MEDICARE, SELFPAY ==
--- NOTE | ~2022-07-31 | XR_ITS ---
Supine and upright views of the abdomen Clinical history: Right ureteral stone COMPARISON: 10/02/2021 Findings: Bowel gas pattern is nonspecific. No evidence for obstruction or free air. Suspected small left renal stone present. Possible 13 mm stone at the right UPJ region or right renal pelvis. Suspect ed right lower pole renal stones present. Osseous structures are intact. Impression: Suspected bilateral nephrolithiasis with additional possible 13 mm stone at the right UPJ regional ri ght renal pelvis. Reviewed, dictated and finalized at location . OGEOLOGIST Impression: Suspected bilateral nephrolithiasis with additional possible 13 mm stone at the right UPJ regional right renal pelvis.
== END 2022-07-31 09:44 | disposition home or self-care (01) ==
PROVIDERS: PCP Family Medicine; Visit Provider Nurse Practitioner Adult Health
DX: N20.1 Calculus of ureter (principal)
CPT/HCPCS: 74018

== ENCOUNTER 2022-08-04 12:26 | Outpatient (CLI) | payer MEDICARE, SELFPAY ==
[2022-08-04 13:13] LABS: Hematocrit 47.5 % (42.0-52.0); Hemoglobin 15.9 g/dL (14.0-18.0)
[2022-08-04 13:16] LABS: Appearance Urine Cloudy (Clear); Bilirubin Urine 1+ (Negative); Blood Urine 3+ (Negative); Color Urine Yellow (Yellow); Glucose Urine UA Negative (Negative); Ketones Urine Negative (Negative); Leukocyte Esterase Ur Trace LEU/UL (Negative); Nitrate Urine Negative (Negative); Protein Urine 2+ mg/dL (Negative)
[2022-08-04 13:24] LABS: Mucus Urine Rare /lpf; RBC Urine >75 /hpf (0-2); WBC Urine 31-50 /hpf
[2022-08-04 13:30] LABS: INR 1.3; Prothrombin Time 15.5 Seconds (11.1-14.7)
[2022-08-04 13:31] LABS: Partial Thromboplastin Time 29.7 SECONDS (22.3-36.8)
[2022-08-04 13:40] LABS: Anion Gap 6 mmol/L (8-16); Blood Urea Nitrogen 14 mg/dL (9-20); Carbon Dioxide 26 mmol/L (22-30); Chloride 102 mmol/L (98-107); Estimated Glomerular Filt Rate > 60; Glucose 154 mg/dL (65-110); Potassium 3.8 mmol/L (3.4-5.0); Sodium 134 mmol/L (137-145)
[2022-08-04 13:46] LABS: Add Urine Microscopic? YES
== END 2022-08-04 12:27 | disposition home or self-care (01) ==
PROVIDERS: Anesthesiology; PCP Family Medicine; Visit Provider Urology
DX: N20.1 Calculus of ureter (principal); E11.65 Type 2 diabetes mellitus with hyperglycemia; D64.9 Anemia, unspecified; Z01.818 Encounter for other preprocedural examination
CPT/HCPCS: 36415; 80048; 81001; 85014; 85018; 85610; 85730; 87086

== ENCOUNTER 2022-08-06 02:03 | Day surgery (SDC) | payer MEDICARE, SELFPAY ==
[2022-08-04 11:01] VITALS: BMI 35.4
--- NOTE | 2022-08-04 11:29 | PC.NURSE ---
Report to the Outpatient Waiting Room, entrance under the green pavilion located off [address], at time _7:30AM on date __08/06/22 . Planned Procedure Time: __9:30AM . Time changes happen often and if your time is changed the preop area will call you the afternoon before. - You and your visitor will be asked to self-screen and do not enter if you have any COVID symptoms. - Only one visitor is requested with a max of two and NO children visitors are allowed at this time. - The patient visitor may be requested to leave or wait in car when not with patient due to distancing restrictions. - A mask is optional within the hospital at this time. Patients may have clear liquids (water, carbonated beverages, clear teas, apple juice) until 3 hours prior to surgery with a maximum of 20 ounces. - No food from midnight until time of surgery Take the following medications with a SIP of water the morning of surgery: __SOTOLOL DO NOT STOP ANY OF YOUR OTHER PRESCRIPTION MEDICATIONS PRIOR TO SURGERY ?EXCEPT THE FOLLOWING Medications to discontinue per physician ___HOLD XERALTO PER DR DICKINSON, HOLD ALL VITAMINS/SUPPLEMENTS 3 DAYS PRE-OP- START HOLDING NOW -LAST DOSE WAS YESTERDAY (08/03/22) *MESSAGE LEFT FOR DR DICKINSON' RN INTERNATIONAL, PREETHI, TO CLARIFY HOLDING OF XERALTO. Please no make-up, nail german, hairspray, perfume, deodorant, or body powder the day of surgery. No jewelry (including any body piercings) or valuables the day of surgery, leave them at home. Please take a shower or bath the night before, or the morning of, surgery with an antibacterial soap. Wear comfortable, loose fitting clothing. Children are encouraged to wear pajamas. - Jewelry must be removed prior to entering the operating room. Rings and piercings that are not removed may be cut off. - The hospital will not accept responsibility for valuables. - Please leave all valuables, including medications, at home the day of surgery. If you are going home after surgery, a licensed straddle bug driver must drive you home. - NO public transportation without another adult if you receive anesthesia. - We recommend that an adult stay with you for 24 hours following discharge. - We also recommend that you do not drive, make important decision, drink alcoholic beverages, or take any drugs that were not prescribed by your health care provider for at least 24 hours after your discharge time. Follow any additional instructions given to you from your surgeon. If you or anyone in your household have experienced Covid symptoms in the past week, please notify your surgeon or the nurse liaison at the phone number below for possible testing. Telephone instructions given to __PATIENT and asked if any additional questions and then verbalized understanding. Patient advised to call surgeon office or pre surgery nurse liaison [phone] if any additional questions.
[2022-08-06] VITALS (8 sets, daily range): BP systolic 108–148; BP diastolic 57–92; PULSE 66–76; RESP 11–20; TEMP 36.1–36.6; O2SAT 95–100; BMI 35.3
--- NOTE | ~2022-08-06 | XR_ITS ---
Supine and upright views of the abdomen Clinical history: Lithotripsy COMPARISON: 07/31/2022 Findings: Bowel gas pattern is nonspecific. No evidence for obstruction or free air. Stone at the rig ht renal pelvis or proximal right ureter is unchanged. Probable additional bilateral renal stones are also similar to prior exam. Osseous structures are intact. Impression: Stable stone at the right renal pelvis or right proximal ureter. Probable additional bilateral renal stones are also similar to prior exam. Reviewed, dictated and finalized at [facility]. [employer] Impression: Stable stone at the right renal pelvis or right proximal ureter. Probable additional bilateral renal stones are also similar to prior exam.
[2022-08-06] MEDS: LACTATED RINGERS 1,000 ML 30 ML IV CONT (07:15)
--- NOTE | 2022-08-06 07:24 | WPDHPUPDATE1 ---
History and Physical Update Update Date/Time: 08/06/22 07:24 History and Physical has been reviewed, including an updated exam of the patient. There are NO changes in the patient's condition. Risks, benefits, and alternatives have been discussed and questions answered. Patient agrees to proceed with procedure. Proceed with cysto, right retrograde, right stent right eswl.
[2022-08-06 07:30] LABS: Glucose Point of Care 144 mg/dl (65-105)
--- NOTE | 2022-08-06 08:10 | WPDANESEPPF ---
Anes - Initial Pre Proc Eval Procedure: Operation Date: 08/06/22 08:30 Proposed Procedures p Right Extracorporeal Shock Wave Lithotripsy with Cystoscopy - Galdino Reddy MD Date/Time: 08/06/22 08:10 Surgeon: Galdino Reddy MD Pre Op Diagnosis: right ureteral stone, gross hematuria Patient Data Age: 72 Gender: M Height: 1.78 m Weight: 111.6 kg Last Vital Signs Temp 97.9 F 08/06/22 06:55 Pulse 71 08/06/22 06:55 Resp 16 08/06/22 06:55 BP 120/72 08/06/22 06:55 Pulse Ox 98 08/06/22 06:55 O2 Del Method Room Air 08/06/22 06:55 Allergies Allergy/AdvReac Type Severity Reaction Status Date / Time ramipril AdvReac Intermediate Cough Verified 08/06/22 08:14 RAFFI Inhibitors AdvReac Mild Cough Verified 08/06/22 08:14 Home Medications Medication Instructions Recorded Confirmed Type atorvastatin 40 mg tablet 40 mg PO DAILY 04/24/19 08/04/22 History calcium polycarbophil 625 mg 1,250 mg PO .qhs 04/24/19 08/04/22 History tablet (FiberCon) ferrous sulfate 325 mg (65 mg 325 mg PO BID 04/24/19 08/04/22 History iron) tablet rivaroxaban 20 mg tablet (Xarelto) 20 mg PO DAILY 04/24/19 08/06/22 History sotalol 80 mg tablet 80 mg PO BID 04/25/19 08/06/22 History finasteride 5 mg tablet 5 mg PO DAILY 04/09/20 08/04/22 History metformin 500 mg tablet,extended 500 mg PO BID 90 days #180 tabs 05/12/21 08/04/22 Rx release 24hr zonisamide 100 mg capsule 300 mg PO HS 09/14/21 08/04/22 History omeprazole 40 mg capsule,delayed 40 mg PO DAILY #90 caps 04/27/22 08/04/22 Rx release blood sugar diagnostic (Accu-Chek #100 ea 05/17/22 05/17/22 Rx Sirena Plus test strips) blood-glucose meter (Accu-Chek #1 ea 05/17/22 05/17/22 Rx Sirena Plus Meter) lancets (Accu-Chek Fastclix Lancet #100 ea 05/17/22 05/17/22 Rx Drum) trazodone 100 mg tablet See Rx Instructions .Route 07/16/22 08/04/22 Rx .COMPLEX #90 tabs ibuprofen 800 mg tablet 800 mg PO BID PRN Pain 08/04/22 08/04/22 History losartan 50 mg tablet 50 mg PO QAM 08/04/22 08/04/22 History multivitamin 1 tablet PO DAILY 08/04/22 08/06/22 History Laboratory Tests 08/06/22 08/06/22 07:20 07:27 PT 13.0 Seconds Seconds (11.1-14.7) INR 1.0 POC Capillary Glucose 144 mg/dl H mg/dl (65-105) Patient hx anesthesia problems: none Family hx anesthesia problems: none Results Review: All pre-operative results and documents have been reviewed as part of the pre-operative evaluation. 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 BPH (benign prostatic hyperplasia) Chronic GERD Coronary artery disease involving [place] coronary artery of [place] heart Diabetes mellitus type II, uncontrolled Diabetes type 2, controlled Essential tremor Hypertensive heart disease without congestive heart failure Kidney stones Mixed hyperlipidemia Obesity Paroxysmal A-fib Right kidney mass Surgical History Surgical History History of coronary artery stent placement Social History Social History Smoking status: Never smoker Second hand tobacco smoke exposure: No Alcohol intake: current Drinks per week: 1 Alcohol use details: 1 glass wine/week Substance use: never Substance use type: does not use Living arrangements: with family Additional living arrangements comments: Occupation/Education: retired Gender identity (if verbalized by the patient): Male Sexual Orientation (if Verbalized by the Patient): Straight or Heterosexual Spiritual care concerns: No Anes - Eval Final PreProcedure Day of Procedure 08/06/22 08:10 Patient weight: obese Heart: regular rate and rhythm and irregular rhythm Lungs: clear to auscultation Neurological: alert and oriented Last oral intake: >/= 8 hours ASA c
[2022-08-06] MEDS: ceFAZolin 2 GM/D5W 50 ML 2 GM/50 ML BAG IVPB (08:25)
[2022-08-06] MEDS: LIDOCAINE HCL 2% GEL UROJET 10 ML PKG MUCOUS MEM (08:35)
--- NOTE | 2022-08-06 09:13 | P.OP_ITS ---
Procedure Note - Detailed Date of Procedure 08/06/22 Pre-op Diagnosis right ureteral stone, gross hematuria Post-op Diagnosis Same Procedure Performed Cystoscopy, right ureteral stent placement 4.8 [place] contour, lithotripsy of right renal calculus Surgeon Galdino Reddy MD Anesthesia General Description of Procedure Patient is taken to the operative suite correctly identified. Once anesthesia was obtained he was prepped and draped usual sterile fashion. Flexible scope was inserted into the urethra. There were no urethral strictures. Fashion has an obstructing prostate. Upon entering the bladder there is no tumors noted. We were able to visualize the right ureteral orifice. Guidewire was inserted and then a 4.8 [place] contour stent was then placed with the proximal end visibly passed the stone. The distal end was coiled in the bladder. 2% viscous lidocaine was inserted into the urethra. Patient was repositioned and the stone was localized in both planes. Two thousand five hundred shocks were given the stone. Patient tolerated procedure well without any complications and was taken recovery stable condition. He will follow-up in 7-10 days with KUB. Please send a copy this op note to my office. Estimated Blood Loss 0 Drains Yes Packing No Pathology None sent Complications No immediate complications Condition Stable Disposition PACU
[2022-08-06 09:31] LABS: Glucose Point of Care 142 mg/dl (65-105)
--- NOTE | 2022-08-06 11:01 | SUR.PHASEII ---
Dr. Reddy contacted regarding holding patient's Xarelto. Dr. Reddy stated patient should continue to hold his Xarelto until Tuesday08/08/22 unless there is a lot of blood in patient's urine. In the case of excessive hematuria patient will hold Xarelto longer. These instructions given to patient. Patient verbalized understanding.
== END 2022-08-06 10:50 | disposition home or self-care (01) ==
PROVIDERS: PCP Family Medicine; Visit Provider Urology
PROC: (CPT 50590; principal; 2022-08-06 08:30)
DX: N20.1 Calculus of ureter (principal); R31.0 Gross hematuria; I25.10 Atherosclerotic heart disease of native coronary artery without angina pectoris; E11.9 Type 2 diabetes mellitus without complications; I11.9 Hypertensive heart disease without heart failure; I48.0 Paroxysmal atrial fibrillation; E78.2 Mixed hyperlipidemia; G25.0 Essential tremor; N40.0 Benign prostatic hyperplasia without lower urinary tract symptoms; K21.9 Gastro-esophageal reflux disease without esophagitis; Z79.01 Long term (current) use of anticoagulants; Z79.84 Long term (current) use of oral hypoglycemic drugs; Z95.5 Presence of coronary angioplasty implant and graft; E66.9 Obesity, unspecified; Z68.35 Body mass index [BMI] 35.0-35.9, adult
CPT/HCPCS: 52332; 50590; 36415; 74018; 80048; 81001; 82948; 85014; 85018; 85610; 85730; 87086; C1758; C1769; C2617; J0690; J3010; J7120; Q9966

== ENCOUNTER 2022-08-17 11:27 | Outpatient (CLI) | payer MEDICARE, SELFPAY ==
--- NOTE | ~2022-08-17 | XR_ITS ---
EXAMINATION: XR abdomen/kub 1V DATE: 08/17/2022 11:45 INDICATION: Right ureteral stone. TECHNIQUE: A supine view of the abdomen on 2 radiographs was obtained. COMPARISON: CT abdomen and pelvis 10/05/2021, abdomen radiographs 08/06/2022 FINDINGS: There are no dilated loops of bowel. There is a right internal ureteral stent in expected p osition. There are 14 mm and 6 mm stones in proximal right ureter. There are 3 stones in right kidney measuring up to 3 mm. There is a 4 mm stone in left kidney. IMPRESSION: 1. Stones in the kidneys and proximal right ureter with right internal ureteral stent in expected pos ition. Reviewed, dictated and finalized at location A. IMPRESSION: 1. Stones in the kidneys and proximal right ureter with right internal ureteral stent in expected position.
== END 2022-08-17 11:28 | disposition home or self-care (01) ==
PROVIDERS: PCP Family Medicine; Visit Provider Nurse Practitioner Adult Health
DX: N20.2 Calculus of kidney with calculus of ureter (principal)
CPT/HCPCS: 74018

== ENCOUNTER 2022-08-25 07:40 | Outpatient (CLI) | payer MEDICARE, SELFPAY ==
[2022-08-25 08:48] LABS: Partial Thromboplastin Time 25.8 SECONDS (22.3-36.8); Prothrombin Time 12.6 Seconds (11.1-14.7)
== END 2022-08-25 07:41 | disposition home or self-care (01) ==
LOC: ANHSURGERY 07:43
PROVIDERS: PCP Family Medicine; Visit Provider Urology
DX: N20.0 Calculus of kidney (principal); Z01.818 Encounter for other preprocedural examination
CPT/HCPCS: 36415; 85610; 85730

== ENCOUNTER 2022-09-03 00:53 | Day surgery (SDC) | payer MEDICARE, SELFPAY ==
[2022-08-20 14:19] VITALS: BMI 36.8
--- NOTE | 2022-08-20 14:40 | PC.NURSE ---
Report to the Outpatient Waiting Room, entrance under the green pavilion located off [facility], at time __6:30AM on date __09/03/22 . Planned Procedure Time: _8:30AM . Time changes happen often and if your time is changed the preop area will call you the afternoon before. - You and your visitor will be asked to self-screen and do not enter if you have any COVID symptoms. - Only one visitor is requested with a max of two and NO children visitors are allowed at this time. - The patient visitor may be requested to leave or wait in car when not with patient due to distancing restrictions. - A mask is optional within the hospital at this time. Patients may have clear liquids (water, carbonated beverages, clear teas, apple juice) until 3 hours prior to surgery with a maximum of 20 ounces. - No food from midnight until time of surgery Take the following medications with a SIP of water the morning of surgery: _SOTALOL, FLONASE NEEDED DO NOT STOP ANY OF YOUR OTHER PRESCRIPTION MEDICATIONS PRIOR TO SURGERY ?EXCEPT THE FOLLOWING Medications to discontinue per physician __HOLD XERALTO [address] DICKINSON(PER PATIENT)- LAST DOSE 08/31/22, HOLD ALL VITAMINS/SUPPLEMENTS 3 DAYS PRE-OP- LAST DOSE 08/02/22, HOLD ALL NSAIDS(IBUPROFEN) 7 DAYS PRE-OP- LAST DOSE 07/30/22. Please no make-up, nail frisian, hairspray, perfume, deodorant, or body powder the day of surgery. No jewelry (including any body piercings) or valuables the day of surgery, leave them at home. Please take a shower or bath the night before, or the morning of, surgery with an antibacterial soap. Wear comfortable, loose fitting clothing. Children are encouraged to wear pajamas. - Jewelry must be removed prior to entering the operating room. Rings and piercings that are not removed may be cut off. - The hospital will not accept responsibility for valuables. - Please leave all valuables, including medications, at home the day of surgery. If you are going home after surgery, a licensed pizza driver must drive you home. - NO public transportation without another adult if you receive anesthesia. - We recommend that an adult stay with you for 24 hours following discharge. - We also recommend that you do not drive, make important decision, drink alcoholic beverages, or take any drugs that were not prescribed by your health care provider for at least 24 hours after your discharge time. Follow any additional instructions given to you from your surgeon. If you or anyone in your household have experienced Covid symptoms in the past week, please notify your surgeon or the nurse liaison at the phone number below for possible testing. Telephone instructions given to ___PATIENT and asked if any additional questions and then verbalized understanding. Patient advised to call surgeon office or pre surgery nurse liaison [phone] if any additional questions.
--- NOTE | ~2022-09-03 | XR_ITS ---
Supine and upright views of the abdomen Clinical history: Lithotripsy COMPARISON: 08/17/2022 Findings: Bowel gas pattern is nonspecific. No evidence for obstruction or free air. Right ureteral s tent remains in place. 1.8 cm stone present at the right lower renal pole. Probable subtle additional small bilateral renal stones. Osseous structures are intact. Impression: 1.8 cm right lower pole renal stone. Additional much smaller bilateral renal stones. Right ureteral stent. Reviewed, dictated and finalized at location M. Impression: 1.8 cm right lower pole renal stone. Additional much smaller bilateral renal st ones. Right ureteral stent.
--- NOTE | 2022-09-03 07:13 | WPDHPUPDATE1 ---
History and Physical Update Update Date/Time: 09/03/22 07:13 History and Physical has been reviewed, including an updated exam of the patient. There are NO changes in the patient's condition. Risks, benefits, and alternatives have been discussed and questions answered. Patient agrees to proceed with procedure. Proceed with eswl of right renal calculus.
--- NOTE | 2022-09-03 07:17 | WPDANESEPPF ---
Anes - Initial Pre Proc Eval Procedure: Operation Date: 09/03/22 08:30 Proposed Procedures p Right Extracorporeal Shock Wave Lithotripsy - Galdino Reddy MD Date/Time: 09/03/22 07:17 Surgeon: Galdino Reddy MD Pre Op Diagnosis: Rt Renal Calculous Patient Data Age: 72 Gender: M Height: 1.75 m Weight: 113 kg Allergies Allergy/AdvReac Type Severity Reaction Status Date / Time ramipril AdvReac Intermediate Cough Verified 09/03/22 07:14 RAFFI Inhibitors AdvReac Mild Cough Verified 09/03/22 07:14 Home Medications Medication Instructions Recorded Confirmed Type atorvastatin 40 mg tablet 40 mg PO DAILY 04/24/19 09/03/22 History calcium polycarbophil 625 mg 1,250 mg PO .qhs 04/24/19 09/03/22 History tablet (FiberCon) ferrous sulfate 325 mg (65 mg 325 mg PO BID 04/24/19 09/03/22 History iron) tablet rivaroxaban 20 mg tablet (Xarelto) 20 mg PO DAILY 04/24/19 09/03/22 History sotalol 80 mg tablet 80 mg PO BID 04/25/19 09/03/22 History finasteride 5 mg tablet 5 mg PO DAILY 04/09/20 09/03/22 History metformin 500 mg tablet,extended 500 mg PO BID 90 days #180 tabs 05/12/21 09/03/22 Rx release 24hr zonisamide 100 mg capsule 300 mg PO HS 09/14/21 09/03/22 History omeprazole 40 mg capsule,delayed 40 mg PO DAILY #90 caps 04/27/22 09/03/22 Rx release blood sugar diagnostic (Accu-Chek #100 ea 05/17/22 09/03/22 Rx Sirena Plus test strips) blood-glucose meter (Accu-Chek #1 ea 05/17/22 09/03/22 Rx Sirena Plus Meter) lancets (Accu-Chek Fastclix Lancet #100 ea 05/17/22 09/03/22 Rx Drum) ibuprofen 800 mg tablet 400 mg PO BID PRN Pain 08/04/22 09/03/22 History losartan 50 mg tablet 50 mg PO QAM 08/04/22 09/03/22 History multivitamin 1 tablet PO DAILY 08/04/22 09/03/22 History fluticasone propionate 50 1 spray intranasal DAILY PRN 08/20/22 09/03/22 History mcg/actuation nasal Congestion spray,suspension (Flonase Allergy Relief) trazodone 100 mg tablet 100 mg PO HS 08/20/22 09/03/22 History Patient hx anesthesia problems: none Family hx anesthesia problems: none Results Review: All pre-operative results and documents have been reviewed as part of the pre-operative evaluation. 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 BPH (benign prostatic hyperplasia) Chronic GERD Coronary artery disease involving [place] coronary artery of [place] heart Diabetes mellitus type II, uncontrolled Diabetes type 2, controlled Essential tremor Hypertensive heart disease without congestive heart failure Kidney stones Mixed hyperlipidemia Obesity Paroxysmal A-fib Right kidney mass Surgical History Surgical History History of coronary artery stent placement Social History Social History Smoking status: Never smoker Second hand tobacco smoke exposure: No Alcohol intake: current Drinks per week: 2 Alcohol use details: 1 glass wine/week Substance use: never Substance use type: does not use Living arrangements: with family Additional living arrangements comments: Occupation/Education: retired Gender identity (if verbalized by the patient): Male Sexual Orientation (if Verbalized by the Patient): Straight or Heterosexual Spiritual care concerns: No Anes - Eval Final PreProcedure Day of Procedure 09/03/22 07:17 Patient weight: obese Heart: regular rate and rhythm Lungs: clear to auscultation Airway: Mallampati scale class III Neurological: alert and oriented Last oral intake: >/= 8 hours ASA classification: III Emergent: no Anesthetic plan: proceed Anesthesia type and monitoring: general LMA and standard monitoring Results Review: All pre-operative results and documents have been reviewed as part of the pre-operative evaluation. Informed Consent: The patien
[2022-09-03 07:24] VITALS: BP 134/75; PULSE 78; RESP 18; TEMP 36.8; O2SAT 97
[2022-09-03] MEDS: LACTATED RINGERS 1,000 ML 30 ML IV CONT (07:36)
[2022-09-03 07:42] LABS: Glucose Point of Care 165 mg/dl (65-105)
[2022-09-03] MEDS: ceFAZolin 2 GM/D5W 50 ML 2 GM/50 ML BAG IVPB (07:58)
--- NOTE | 2022-09-03 08:33 | W.PM.PROC2 ---
Procedure Note - Detailed Date of Procedure 09/03/22 Pre-op Diagnosis Rt Renal Calculous Post-op Diagnosis Same Procedure Performed Lithotripsy of right renal calculus 2 cm Surgeon Galdino Reddy MD Anesthesia General Description of Procedure Patient is taken to the operative suite correctly identified. Once anesthesia was obtained the stone was localized in both planes. Two thousand five hundred shocks given the stone. There appeared to be fragmentation of the stone. Patient was taken rehab covering in stable condition. Instructed to follow-up in 7-10 days with KUB. Please send a copy of op note to my office Estimated Blood Loss 0 Drains No Packing No Pathology None sent Complications No immediate complications Condition Stable Disposition PACU
[2022-09-03 08:40] VITALS: BP 145/91; PULSE 79; RESP 14; TEMP 36.1; O2SAT 99
[2022-09-03 08:53] LABS: Glucose Point of Care 143 mg/dl (65-105)
[2022-09-03 08:55] VITALS: BP 132/78; PULSE 71; RESP 16; O2SAT 100
[2022-09-03 09:10] VITALS: BP 122/80; PULSE 77; RESP 16; O2SAT 95
[2022-09-03 09:30] VITALS: BP 138/72; PULSE 69; RESP 16
[2022-09-03 10:00] VITALS: BP 129/69; PULSE 71; RESP 16
== END 2022-09-03 10:22 | disposition home or self-care (01) ==
PROVIDERS: PCP Family Medicine; Visit Provider Urology
PROC: (CPT 50590; principal; 2022-09-03 08:30)
DX: N20.0 Calculus of kidney (principal); E11.9 Type 2 diabetes mellitus without complications; I25.10 Atherosclerotic heart disease of native coronary artery without angina pectoris; E78.2 Mixed hyperlipidemia; I48.0 Paroxysmal atrial fibrillation; N40.0 Benign prostatic hyperplasia without lower urinary tract symptoms; G25.0 Essential tremor; I11.9 Hypertensive heart disease without heart failure; E66.9 Obesity, unspecified; Z68.36 Body mass index [BMI] 36.0-36.9, adult; Z95.5 Presence of coronary angioplasty implant and graft; Z79.01 Long term (current) use of anticoagulants; Z79.84 Long term (current) use of oral hypoglycemic drugs
CPT/HCPCS: 50590; 36415; 74018; 82948; 85610; 85730; J0690; J1100; J2405; J2704; J3010; J7120

== ENCOUNTER 2022-09-13 10:53 | Outpatient (CLI) | payer MEDICARE, SELFPAY ==
--- NOTE | ~2022-09-13 | XR_ITS ---
XR abdomen/kub 1V 09/13/2022 11:09 INDICATION: Right ureteral stone TECHNIQUE: KUB COMPARISON: None FINDINGS: Bowel gas pattern is normal. There are bilateral renal stones. There is a right internal ur eteral stent in expected position. There is no evidence of free air, mass, organomegaly, ascites or o bstruction. No abnormal calculi are seen. The bones appear intact. IMPRESSION: 1: Bilateral nephrolithiasis. Reviewed, dictated and finalized at location B.
== END 2022-09-13 10:54 | disposition home or self-care (01) ==
PROVIDERS: PCP Family Medicine; Visit Provider Urology
DX: N20.0 Calculus of kidney (principal)
CPT/HCPCS: 74018

== ENCOUNTER 2022-09-15 13:33 | Outpatient (CLI) | payer MEDICARE, SELFPAY | END 2022-09-15 13:34 | disposition home or self-care (01) | LOC: ANHSURGERY 13:40 | PROVIDERS: PCP Family Medicine; Visit Provider Urology | DX: Z01.818 Encounter for other preprocedural examination (principal); N20.0 Calculus of kidney | CPT/HCPCS: 36415; 85610; 85730; 87086 ==

== ENCOUNTER 2022-09-17 01:09 | Day surgery (SDC) | payer MEDICARE, SELFPAY ==
[2022-09-15 13:06] VITALS: BMI 36.9
--- NOTE | 2022-09-15 13:15 | PC.NURSE ---
PRE-OP INSTRUCTIONS, PLEASE READ CAREFULLY Report to the Outpatient Waiting Room, entrance under the green pavilion located off [facility], at time _0630_ on date _09/17/22_. Planned Procedure Time: _0830_. Time changes happen often and if your time is changed the preop area will call you the afternoon before. - You and your visitor will be asked to self-screen and do not enter if you have any COVID symptoms. - A mask is optional within the hospital at this time. Patients may have clear liquids (water, carbonated beverages, clear teas, apple juice) until 3 hours prior to surgery (0530 AM) with a maximum of 20 ounces. - No food from midnight until time of surgery Take the following medications with a SIP of water the morning of surgery: _SOTALOL, TYLENOL & NASAL SPRAY IF NEEDED _ DO NOT STOP ANY OF YOUR OTHER PRESCRIPTION MEDICATIONS PRIOR TO SURGERY ?EXCEPT THE FOLLOWING Medications to discontinue per ANESTHESIA - _MULTIVITAMIN OF TODAY, Date to take last dose 09/15/22_ Please no make-up, nail sao tomean, hairspray, perfume, deodorant, or body powder the day of surgery. No jewelry (including any body piercings) or valuables the day of surgery, leave them at home. Please take a shower or bath the night before, or the morning of, surgery with an antibacterial soap. Wear comfortable, loose fitting clothing. - Jewelry must be removed prior to entering the operating room. Rings and piercings that are not removed may be cut off. - The hospital will not accept responsibility for valuables. - Please leave all valuables, including medications, at home the day of surgery. If you are going home after surgery, a licensed semi truck driver must drive you home. - NO public transportation without another adult if you receive anesthesia. - We recommend that an adult stay with you for 24 hours following discharge. - We also recommend that you do not drive, make important decision, drink alcoholic beverages, or take any drugs that were not prescribed by your health care provider for at least 24 hours after your discharge time. Follow any additional instructions given to you from your surgeon. If you or anyone in your household have experienced Covid symptoms in the past week, please notify your surgeon or the nurse liaison at the phone number below for possible testing. Telephone instructions given to _PATIENT_and asked if any additional questions and then verbalized understanding. Patient advised to call surgeon office or pre surgery nurse liaison [phone] if any additional questions.
[2022-09-17] VITALS (7 sets, daily range): BP systolic 124–151; BP diastolic 67–88; PULSE 67–85; RESP 12–20; TEMP 36.3–36.4; O2SAT 92–100
--- NOTE | ~2022-09-17 | XR_ITS ---
Supine and upright views of the abdomen Clinical history: Lithotripsy COMPARISON: 09/13/2022 Findings: Bowel gas pattern is nonspecific. No evidence for obstruction or free air. Right ureteral s tent remains in place. Multiple amorphous right lower pole renal stones are similar to prior exam. Sm all left renal stones are also unchanged. Osseous structures are intact. Impression: Right ureteral stent with multiple somewhat amorphous right lower pole renal stones. Small left renal stones are unchanged. Reviewed, dictated and finalized at location M. Impression: Right ureteral stent with multiple somewhat amorphous right lower pole renal st ones. Small left renal stones are unchanged.
[2022-09-17 07:38] LABS: Glucose Point of Care 136 mg/dl (65-105)
[2022-09-17] MEDS: LACTATED RINGERS 1,000 ML 30 ML IV CONT (07:42)
--- NOTE | 2022-09-17 07:57 | WPDANESEPPF ---
Anes - Initial Pre Proc Eval Procedure: Operation Date: 09/17/22 08:30 Proposed Procedures p Right Extracorporeal Shock Wave Lithotripsy - Galdino Reddy MD Date/Time: 09/17/22 07:57 Surgeon: Galdino Reddy MD Pre Op Diagnosis: right renal stones Patient Data Age: 72 Gender: M Height: 1.75 m Weight: 112.1 kg Last Vital Signs Temp 97.4 F L 09/17/22 07:40 Pulse 85 09/17/22 07:40 Resp 14 09/17/22 07:40 BP 146/71 H 09/17/22 07:40 Pulse Ox 99 09/17/22 07:40 O2 Del Method Room Air 09/17/22 07:40 Allergies Allergy/AdvReac Type Severity Reaction Status Date / Time ramipril AdvReac Intermediate Cough Verified 09/17/22 07:43 RAFFI Inhibitors AdvReac Mild Cough Verified 09/17/22 07:43 Home Medications Medication Instructions Recorded Confirmed Type atorvastatin 40 mg tablet 40 mg PO DAILY 04/24/19 09/15/22 History calcium polycarbophil 625 mg 1,250 mg PO .qhs 04/24/19 09/15/22 History tablet (FiberCon) ferrous sulfate 325 mg (65 mg 325 mg PO BID 04/24/19 09/15/22 History iron) tablet rivaroxaban 20 mg tablet (Xarelto) 20 mg PO DAILY 04/24/19 09/15/22 History sotalol 80 mg tablet 80 mg PO BID 04/25/19 09/17/22 History finasteride 5 mg tablet 5 mg PO DAILY 04/09/20 09/15/22 History metformin 500 mg tablet,extended 500 mg PO BID 90 days #180 tabs 05/12/21 09/15/22 Rx release 24hr omeprazole 40 mg capsule,delayed 40 mg PO DAILY #90 caps 04/27/22 09/15/22 Rx release blood sugar diagnostic (Accu-Chek #100 ea 05/17/22 09/15/22 Rx Sirena Plus test strips) blood-glucose meter (Accu-Chek #1 ea 05/17/22 09/15/22 Rx Sirena Plus Meter) lancets (Accu-Chek Fastclix Lancet #100 ea 05/17/22 09/15/22 Rx Drum) losartan 50 mg tablet 50 mg PO QAM 08/04/22 09/15/22 History multivitamin 1 tablet PO DAILY 08/04/22 09/15/22 History fluticasone propionate 50 1 spray intranasal DAILY PRN 08/20/22 09/15/22 History mcg/actuation nasal Congestion spray,suspension (Flonase Allergy Relief) trazodone 100 mg tablet 100 mg PO HS 08/20/22 09/15/22 History acetaminophen 650 mg 1,300 mg PO Q12H PRN Pain 09/15/22 09/15/22 History tablet,extended release Laboratory Tests 09/17/22 07:36 POC Capillary Glucose 136 mg/dl H mg/dl (65-105) Patient hx anesthesia problems: none Family hx anesthesia problems: none Results Review: All pre-operative results and documents have been reviewed as part of the pre-operative evaluation. 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 BPH (benign prostatic hyperplasia) Chronic GERD Coronary artery disease involving [place] coronary artery of [place] heart Diabetes mellitus type II, uncontrolled Diabetes type 2, controlled Essential tremor Hypertensive heart disease without congestive heart failure Kidney stones Mixed hyperlipidemia Obesity Paroxysmal A-fib Right kidney mass Surgical History Surgical History History of coronary artery stent placement Social History Social History Smoking status: Never smoker Second hand tobacco smoke exposure: No Alcohol intake: current Drinks per week: 2 Alcohol use details: 1 glass wine/week Substance use: never Substance use type: does not use Living arrangements: with family Additional living arrangements comments: Occupation/Education: retired Gender identity (if verbalized by the patient): Male Sexual Orientation (if Verbalized by the Patient): Straight or Heterosexual Spiritual care concerns: No Anes - Eval Final PreProcedure Day of Procedure 09/17/22 07:57 Patient weight: obese Heart: regular rate and rhythm Lungs: clear to auscultation Airway: Mallampati scale class III Neurological: alert and oriented Last oral intake: >/= 8 hours ASA c
--- NOTE | 2022-09-17 07:59 | WPDHPUPDATE1 ---
History and Physical Update Update Date/Time: 09/17/22 07:59 History and Physical has been reviewed, including an updated exam of the patient. There are NO changes in the patient's condition. Risks, benefits, and alternatives have been discussed and questions answered. Patient agrees to proceed with procedure. Proceed with lithotripsy of right renal calculus
[2022-09-17] MEDS: ceFAZolin 2 GM/D5W 50 ML 2 GM/50 ML BAG IVPB (08:35)
--- NOTE | 2022-09-17 09:14 | W.PM.PROC2 ---
Procedure Note - Detailed Date of Procedure 09/17/22 Pre-op Diagnosis right renal stones Post-op Diagnosis Same Procedure Performed Lithotripsy of right renal calculi Surgeon Galdino Reddy MD Anesthesia General Description of Procedure Patient was taken to the operative suite correctly identified. Once anesthesia was obtained a small stone in the proximal ureter was isolated after approximately 200 shocks it was no longer visible. We then gave our attention to the lower pole collection of stones. The remainder of shocks up to 2500 shocks were given. Patient tolerated procedure well without any complications and was taken recovery stable condition. Patient will follow-up in 7-10 days with K[facility]. Please send a copy of op note to my office Drains Yes Packing No Pathology None sent Complications No immediate complications Condition Stable Disposition PACU
[2022-09-17 09:28] LABS: Glucose Point of Care 134 mg/dl (65-105)
--- NOTE | 2022-09-17 09:48 | SUR.PHASEI ---
0946: Simple mask removed.
== END 2022-09-17 10:49 | disposition home or self-care (01) ==
PROVIDERS: PCP Family Medicine; Visit Provider Urology
PROC: (CPT 50590; principal; 2022-09-17 08:30)
DX: N20.0 Calculus of kidney (principal); I25.10 Atherosclerotic heart disease of native coronary artery without angina pectoris; E11.9 Type 2 diabetes mellitus without complications; I11.9 Hypertensive heart disease without heart failure; E78.2 Mixed hyperlipidemia; I48.0 Paroxysmal atrial fibrillation; K21.9 Gastro-esophageal reflux disease without esophagitis; N40.0 Benign prostatic hyperplasia without lower urinary tract symptoms; G25.0 Essential tremor; Z79.01 Long term (current) use of anticoagulants; Z79.84 Long term (current) use of oral hypoglycemic drugs; Z95.5 Presence of coronary angioplasty implant and graft; E66.9 Obesity, unspecified; Z68.36 Body mass index [BMI] 36.0-36.9, adult
CPT/HCPCS: 50590; 36415; 74018; 82948; 85610; 85730; 87086; J0690; J1100; J2250; J2370; J2405; J3010; J7120

== ENCOUNTER 2022-09-24 10:32 | Outpatient (CLI) | payer MEDICARE, SELFPAY ==
--- NOTE | ~2022-09-24 | XR_ITS ---
Supine and upright views of the abdomen Clinical history: Right ureteral stone COMPARISON: 09/17/2022 Findings: Bowel gas pattern is nonspecific. No evidence for obstruction or free air. Right ureteral s tent remains in place. Right lower pole renal stones and left midpole renal stone are unchanged. Osse ous structures are intact. Impression: Bilateral nephrolithiasis, unchanged. Right ureteral stent unchanged. Reviewed, dictated and finalized at location . Impression: Bilateral nephrolithiasis, unchanged. Right ureteral stent unchanged.
== END 2022-09-24 10:33 | disposition home or self-care (01) ==
PROVIDERS: PCP Family Medicine; Visit Provider Urology
DX: N20.0 Calculus of kidney (principal)
CPT/HCPCS: 74018

== ENCOUNTER 2022-12-16 10:19 | Outpatient (CLI) | payer MEDICARE, SELFPAY ==
--- NOTE | ~2022-12-16 | XR_ITS ---
Supine and upright views of the abdomen Clinical history: Renal stone COMPARISON: 09/24/2022 Findings: Bowel gas pattern is nonspecific. No evidence for obstruction or free air. There are probab le bilateral renal stones, similar to prior exam. Largest stone probably at the right lower pole elana uring 12 mm.. Osseous structures are intact. Impression: Probable bilateral nephrolithiasis, as detailed above, unchanged. Reviewed, dictated and finalized at location M. Impression: Probable bilateral nephrolithiasis, as detailed above, unchanged.
== END 2022-12-16 10:20 | disposition home or self-care (01) ==
PROVIDERS: PCP Family Medicine; Visit Provider Urology
DX: N20.0 Calculus of kidney (principal)
CPT/HCPCS: 74018

== ENCOUNTER 2023-12-29 13:35 | Emergency (ER) | payer MEDICARE, SELFPAY ==
--- NOTE | 2023-12-29 13:40 | ED.GENADULT ---
HPI - General Adult General Chief complaint: Skin/Abscess/Foreign Body Stated complaint: Bump On Back Of Head Time Seen by Provider: 12/29/23 13:44 Source: patient, RN notes reviewed and old records reviewed Mode of arrival: ambulatory Limitations: no limitations History of Present Illness HPI narrative: 73-year-old male [facility] with able to the back of his head. States there was a bump there for several months. Has not seek medical treatment. Noticed today that it become inflamed and started bleeding. Related Data Home Medications Medication Instructions Recorded Confirmed atorvastatin 40 mg tablet 40 mg PO DAILY 04/24/19 11/28/23 calcium polycarbophil 625 mg 1,250 mg PO .qhs 04/24/19 11/28/23 tablet (FiberCon) ferrous sulfate 325 mg (65 mg 325 mg PO BID 04/24/19 11/28/23 iron) tablet rivaroxaban 20 mg tablet (Xarelto) 20 mg PO DAILY 04/24/19 11/28/23 sotalol 80 mg tablet 80 mg PO BID 04/25/19 11/28/23 finasteride 5 mg tablet 5 mg PO DAILY 04/09/20 11/28/23 multivitamin 1 tablet PO DAILY 08/04/22 11/28/23 fluticasone propionate 50 1 spray intranasal DAILY PRN 08/20/22 11/28/23 mcg/actuation nasal Congestion spray,suspension (Flonase Allergy Relief) acetaminophen 650 mg 1,300 mg PO Q12H PRN Pain 09/15/22 11/28/23 tablet,extended release aspirin 81 mg chewable tablet 81 mg PO DAILY 05/23/23 11/28/23 Allergies Allergy/AdvReac Type Severity Reaction Status Date / Time ramipril AdvReac Intermediate Cough Verified 12/29/23 13:38 RAFFI Inhibitors AdvReac Mild Cough Verified 12/29/23 13:38 Review of Systems Review of Systems: All systems reviewed & are unremarkable except as noted in HPI and below Constitutional: Constitutional: Reports no additional constitutional complaints Eyes: Eyes: Reports no additional eye complaints ENT: Reports system reviewed and no additional complaints, except as documented Cardiovascular: Cardiovascular: Reports no additional cardiovascular complaints, Denies chest pain and Denies dyspnea Respiratory: Respiratory: Reports no additional respiratory complaints, Denies chest congestion, Denies cough and Denies dyspnea Gastrointestinal: Gastrointestinal: Reports no additional gastrointestinal complaints, Denies abdominal pain, Denies nausea and Denies vomiting Musculoskeletal: Musculoskeletal: Reports no additional musculoskeletal complaints Integumentary/Breasts: Skin/Breast: Reports as per HPI Neurologic: Reports system reviewed and no additional complaints, except as documented Psychiatric: Psychiatric: Reports no additional psychiatric complaints Allergic/Immunologic: Allergic/Immunologic: Reports no additional allergic/immunologic complaints PMFSH Past Medical History Medical History 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 BPH (benign prostatic hyperplasia) Chronic GERD Coronary artery disease involving [place] coronary artery of [place] heart Diabetes mellitus type II, uncontrolled Diabetes type 2, controlled Essential tremor Hypertensive heart disease without congestive heart failure Kidney stones Mixed hyperlipidemia Obesity Paroxysmal A-fib Right kidney mass Surgical History Surgical History History of coronary artery stent placement Hx of lithotripsy Social History Social History Smoking status: Never smoker Second hand tobacco smoke exposure: No Alcohol intake: current Drinks per week: 2 Alcohol use details: 1 glass wine/week Substance use: never Substance use type: does not use Living arrangements: with family Additional living arrangements comments: Occupation/Education: retired Gender identity (if verbalized by the patient): Male Sexual Orientation (if Verbalized by the Patient): Straight or Heterosexual Spiritual care concerns: No Co
[2023-12-29 13:45] VITALS: BP 119/74; PULSE 89; RESP 16; TEMP 36.6; O2SAT 98
== END 2023-12-29 14:07 | disposition home or self-care (01) ==
PROVIDERS: Emergency Provider Nurse Practitioner; PCP Family Medicine
DX: L98.9 Disorder of the skin and subcutaneous tissue, unspecified (principal); K22.70 Barrett's esophagus without dysplasia; N40.0 Benign prostatic hyperplasia without lower urinary tract symptoms; K21.9 Gastro-esophageal reflux disease without esophagitis; I10 Essential (primary) hypertension; I25.10 Atherosclerotic heart disease of native coronary artery without angina pectoris; E11.9 Type 2 diabetes mellitus without complications; E78.2 Mixed hyperlipidemia; E66.9 Obesity, unspecified; Z68.32 Body mass index [BMI] 32.0-32.9, adult; I48.0 Paroxysmal atrial fibrillation; Z95.5 Presence of coronary angioplasty implant and graft; Z79.82 Long term (current) use of aspirin
CPT/HCPCS: 99213; G0463

== ENCOUNTER 2024-01-19 09:32 | Outpatient (CLI) | payer MEDICARE, SELFPAY ==
--- NOTE | ~2024-01-19 | XR_ITS ---
EXAMINATION: XR abdomen/kub 1V DATE: 01/19/2024 09:51 INDICATION: Calcium kidney stone. TECHNIQUE: A supine view of the abdomen on 2 radiographs was obtained. COMPARISON: CT abdomen and pelvis 10/05/2021. FINDINGS: There are approximately 3 stones in right kidney measuring up to 8 mm. There are approximat naye 3 stones in left kidney measuring up to 7 mm. There are phleboliths and prostate calcifications i n the pelvis. IMPRESSION: 1. Bilateral kidney stones. Reviewed, dictated and finalized at location A. IMPRESSION: 1. Bilateral kidney stones.
== END 2024-01-19 09:33 | disposition home or self-care (01) ==
LOC: ANHIMG 09:37
PROVIDERS: PCP Family Medicine; Visit Provider Urology
DX: N20.0 Calculus of kidney (principal)
CPT/HCPCS: 74018

== ENCOUNTER 2024-08-13 00:59 | Day surgery (SDC) | payer MEDICARE, SELFPAY ==
[2024-08-06 14:31] VITALS: BMI 34.0
--- NOTE | 2024-08-06 14:48 | SUR.PREOP ---
Spoke with patient regarding medication Xarelto. patient verbalizes understanding that the last dose is to be taken on 08/10/2024 and the Endoscopist will instruct them when to restart after the procedure.
--- OUTSIDE RECORDS SUMMARY | 2024-08-13 01:02 | XMS_ITS | Clinical Summary ---
Author Organization [facility] [address] Address [address] [place] [address] Care Team Providers Care Writer Name Role Phone Ranjan Mckee MD Primary Care Provider Allergies Active Allergy Reactions Criticality Noted Date Comments Erich Inhibitors Medications traZODone (DESYREL) 100 mg tablet take 1 tablet (100MG) by oral route 2 times every day after meals 0 08/16/19 13 Active multivitamin tablet tablet take 1 tablet by oral route every day with food 0 0 03/06/20 13 Active omeprazole (PriLOSEC) 40 mg capsule take 1 capsule by oral route every day before a meal 0 0 09/14/19 17 Active ferrous sulfate (IRON) 325 mg (65 mg iron) capsule, extended release take 1 by Oral route once 0 0 09/14/19 17 Active Additional Information Patient taking differently: 2 times daily, Reported on 06/18/2024 polycarbophil (FIBERCON) 625 mg tablet Take 1 tablet (625 mg total) by mouth daily Active finasteride (PROSCAR) 5 mg tablet Take 1 tablet (5 mg total) by mouth daily Active losartan (COZAAR) 50 mg tablet Take 1 tablet (50 mg total) by mouth daily 30 tablet 03/20/20 20 Active Ozempic 1 mg/dose (4 mg/3 mL) pen injector injection INJECT 1 MG SUBCUTANEOUS EVERY WEEK 04/21/20 23 Active aspirin (Adult Low Dose Aspirin) 81 mg enteric coated tablet Take 1 tablet (81 mg total) by mouth daily 04/26/20 23 Active sotaloL (BETAPACE) 80 mg tablet TAKE 1 TABLET(80 MG) BY MOUTH TWICE DAILY 180 tablet 05/25/20 24 Active atorvastatin (LIPITOR) 40 mg tablet TAKE 1 TABLET(40 MG) BY MOUTH DAILY 90 tablet 05/25/20 24 Active Xarelto 20 mg tablet TAKE 1 TABLET(20 MG) BY MOUTH DAILY 90 tablet 08/07/19 25 Active rivaroxaban (Xarelto) 20 mg tablet Take 1 tablet (20 mg total) by mouth daily 90 tablet 05/09/20 24 025 Discontinued Active Problems Problem Noted Date Diagnosed Date Essential tremor 07/29/2021 Assessment & Plan (09/14/2022 11:13 AM CDT): The patient is a 72-year-old gentleman with essential tremor. At this point he is on zonisamide. He has developed nephrolithiasis such that we need to wean him off of the zonisamide. Topamax is contraindicated. We could try to switch his sotalol to propranolol or, if he discontinue Xarelto, we could initiate primidone therapy. He is going to discuss this with his sound controller and get back with me. Assessment & Plan (04/14/2022 4:33 PM PARTNER): At this point were going to increase his zonisamide to 300 mg at bedtime. I will plan on seeing him back in a few months to discuss the efficacy. He is to contact me in the interim with any concerns or questions. Assessment & Plan (10/21/2021 11:23 AM CDT): Patient is a 71-year-old male with essential tremor. At this point we are going to patient on zonisamide to try to increase his dose slightly to 200 mg in effort reduce his tremor further. I will see him back in 6 months as long as he has no adverse effects. Assessment & Plan (07/29/2021 9:24 AM PARTNER): The patient is a 71-year-old gentleman with benign essential tremor. I did reassure the patient today that he has no evidence of Parkinson's whatsoever. We did discuss the prognosis of essential tremor. We went over medications. He is already on a beta-adalberto for cardiac reasons. He has a fatty liver so I would like to avoid any hepatic medications. I recommended we try him on zonisamide. It does having increased risk of kidney stones, but less so than Topamax. I will start him on 100 mg at bedtime. I did encourage hydration. I went over the side effect profile with him at length. I will see him back in 2 months to discuss the efficacy. Premature atrial contractions 09/25/2020 Pulmonary HTN 03/20/2020 NSVT (nonsustained ventricular tachycardia) 03/06 Encounter for monitoring sotalol therapy 020 Paroxysmal atrial fibrillation ([facility]) 019 Chronic anticoagulation 02/12/2019 S/P coronary artery stent placement 02/08/2017 Mixed diabetic hyperlipidemi a associated with type 2 diabetes mellitus ([facility]) 09/13/2016 Overview (10/29/2016): DM type 2 with diabetic dyslipidemia Iron deficiency anemia 09/13/2016 Overview (10/29/2016): Iron deficiency anemia, unspecified iron deficiency anemia type Hypertension associated with diabetes 08/18/2015 Overview (09/09/2016): HTN (hypertension), benign Coronary artery disease invo lving [place] coronary artery of [place] heart without angina pectoris 08/18/2015 Overview (09/09/2016): Coronary artery disease involving [place] coronary artery of [place] heart without angina pectoris Class 1 obesity due to exces s calories with serious comorbidity and body mass index (BMI) of 34.0 to 34.9 in adult 08/18/2015 Overview (09/09/2016): Obesity, Class II, BMI 35.0-39.9, with comorbidity (see actual BMI) Unknown and unspecified causes of morbidity 08/04 Overview (09/09/2016): Ware's esophagus with dysplasia Ventricular premature beats 02/04/2015 Overview (09/09/2016): Frequent PVCs Palpitations 10/15/2014 Overview (09/09/2016): Palpitation Kidney stone Assessment & Plan (09/14/2022 11:13 AM CDT): The patient has developed a significant kidney stone. We need to wean him off of the zonisamide in order to avoid further kidney stones. I will wean him off by 100 mg every week. Resolved Problems Problem Noted Date Diagnosed Date Resolved Date Hyperlipidemia associated wi th type 2 diabetes mellitus 08/18/2015 10/07/2021 Overview (09/09/2016): Mixed dyslipidemia Encounters Date Type Department Care Team Description 06/18/2024 9:00 AM PARTNER Office Visit [facility] Cardiology [address] [place] [id number] Marcell Ocampo MD Coronary artery disease involving [place] coronary artery of [place] heart without angina pectoris (Primary Dx); Paroxysmal atrial fibrillation (HCC); S/P coronary artery stent placement from Last 3 Months Surgical History Surgery Date Site/Laterality Comments OTHER SURGICAL HISTORY : Coronary Stent Placement 2.75x23 and 2.5x15 JESSICA 02/15 ANGIOPLASTY KIDNEY STONE SURGERY [facility] Medical History Medical History Date Comments Hypertension Hypertension Hx Other Medical Family h/o CAD Gastroesophageal reflux disease GERD Cardiovascular disease Coronary Artery Disease Atrial fibrillation (HCC) Depression Kidney stone High cholesterol Diabetes mellitus (HCC) Type II Family History Medical History Relation Name Comments Alcohol abuse Brother Olaf Wooten III Heart attack Father Phu Wooten Myocardial In farction; Cause of : Myocardial Infarction Obesity Father Phu Wooten Cancer Mother Evelyn Wooten Heart attack Mother's Brother 2 Chris Beltran Myocardi al Infarction; Cause of : Myocardial Infarction Relation Name Status Comments Brother Olaf Wooten III Father Phu Wooten (Age 58) Mother Evelyn Wooten Mother's Brother 1 (Age 52) Mother's Brother 2 Chris Beltran Social History Tobacco Use Types Packs/Day Years Used Date Smoking Tobacco: Never Smokeless Tobacco: Never Tobacco Cessation:Counseling Given: Not Answered Alcohol Use Standard Drinks/Week Comments No 0 (1 standard drink = 0.6 oz pur e alcohol) AUDIT-C Answer Date Recorded Q1: How often do you have a drink containing alc ohol? 2-4 times a month 10/21/2021 Q2: How many drinks containi ng alcohol do you have on a typical day when you are drinking? 1 or 2 10/21/2021 Q3: How often do you have si x or more drinks on one occasion? Never 10/21/2021 Sex and Gender Information Value Date Recorded Sex Assigned at Not on file Legal Sex Male 9:16 AM PARTNER Gender Identity Male 11/29/2019 3:04 PM CDT Sexual Orientation Straight 11/29/2019 3: 04 PM CDT Obstetrics History Last Filed Vital Signs Vital Sign Reading Time Taken Comments Blood Pressure 130/82 06/18/2024 9:05 AM PARTNER Pulse 85 06/18/2024 9:05 AM PARTNER Temperature 36.7 C (98 F) 01/11/2020 10:10 AM CDT Respiratory Rate 16 09/13/2022 3:36 PM CDT Oxygen Saturation 98% 06/18/2024 9:05 AM PARTNER Inhaled Oxygen Concentration - - Weight 105.4 kg (232 lb 4.8 oz) 06/18/2024 9:05 AM PARTNER Height 175.3 cm (5' 9 ) 06/18/2024 9:05 AM PARTNER Body Mass Index 34.3 06/18/2024 9:05 AM PARTNER Plan of Treatment Health Maintenance Due Date Last Done Comments Albumin Creatinine Ratio, Urine 1950 Colon Cancer Screening-Colonoscopy 1950 Depression Screening 1950 Fall Risk Assessment 1950 Hemoglobin A1C 1950 Hepatitis C Screening 1950 Dilated Eye Exam 1950 Foot Exam 1950 DTaP/Tdap/Td Vaccine (1 - Tdap) 1961 Hepatitis B Screening 01/11/1968 Zoster Vaccine (1 of 2) 01/11/2000 Well Visit 65+ 2015 eGFR 01/25/2020 01/24/2019 Influenza Vaccine (#1) 2024 9, 02/28/2018, 02/22/2017, Additional history exists Lipid Panel 06/18/2025 06/18/2024, 04/07, 04/14/2022, Additional history exists Pneumococcal vaccine 65+ Completed 03/09/2019, 07/2017 Procedures Procedure Name Priority Date/Time Associated Diagnosis Comments POCT LIPID PANEL Routine 06/18/2024 4:15 PM PARTNER Coronary artery disease involving [place] coronary artery of [place] heart without angina pectoris BASIC METABOLIC PANEL Routine 01/24/2019 2:22 PM CDT from Last 3 Months or Most Recently Relevant to Health Maintenance Results * POCT lipid panel (06/18/2024 4:15 PM PARTNER) Cholesterol, POC 149 mg/dL Comment:GLU = 179 HDL, POC 18 mg/dL Triglycerides, POC 206 mg/dL LDL Cholesterol POC 90 mg/dL Chol/HDL Ratio, POC 5.0 Non-HDL Cholesterol, POC 131 mg/dL Cholesterol Total, POC 149 mg/dL Capillary blood 06/18/2024 4 :15 PM PARTNER us Marcell Ocampo MD POINT OF CARE TEST ORDER MARLEN Final Result * (ABNORMAL) Basic metabolic panel (01/24/2019 2:22 PM CDT) Glucose 122(H) 65 - 99 mg/dL [facility] - 01 BUN 19 8 - 27 mg/dL [facility] - 01 Creatinine, Serum 1.25 0.76 - 1.27 mg/dL [facility] - 01 eGFR If NonAfricn Am 58(L) >59 mL/min/1.7 3 [facility] - 01 eGFR If Africn Am 67 >59 mL/min/1.7 3 [facility] - 01 BUN/creat ratio 15 10 - 24 [facility] - 01 Sodium 139 134 - 144 mmol/L [facility] - 01 Potassium, sr 4.9 3.5 - 5.2 mmol/L [facility] - 01 Chloride 104 96 - 106 mmol/L [facility] - 01 CO2 20 20 - 29 mmol/L [facility] - 01 Calcium 9.8 8.6 - 10.2 mg/dL [facility] - 01 01/24/2019 2:22 PM CDT 01/24/2019 Narrative [facility] - 01/25/2019 8:12 AM CDT Performed at: - [facility] [address] [id number] Flanging Roll Operator: You Kingsley PhD, Phone: [phone] Specimen Comment: A courtesy copy of this report has been sent to Specimen Comment: [phone]. Jonnathan Crooks MD LAB BLOOD ORDERABLES Fin al Result [facility] - 01 from Last 3 Months or Most Recently Relevant to Health Maintenance Insurance MEDICARE SOLUTIONS MEDICARE [employer]IONS Care Teams Writer Relationship Specialty Start Date End Date Ranjan Mckee MD [address] [facility] [address] [place] [id number] PCP - General 09/13/16
--- OUTSIDE RECORDS SUMMARY | 2024-08-13 01:02 | XMS_ITS | Referral Summary ---
Author Organization [facility] [place] [address] [facility] [address] Address [address] [place] [address] Care Team Providers Care Wood Cabinetmaker Name Role Phone Ranjan Mckee MD Primary Care Provider Encounters Date Type Department Care Team Description 06/18/2024 9:00 AM MANAGEMENT INSTRUCTOR Office Visit [facility] Cardiology [address] [place] [address] Marcell Ocampo MD Coronary artery disease involving [place] coronary artery of [place] heart without angina pectoris (Primary Dx); Paroxysmal atrial fibrillation (HCC); S/P coronary artery stent placement from Last 3 Months Allergies Active Allergy Reactions Criticality Noted Date [...] is going to discuss this with his clothes model and get back with me. Assessment & Plan (04/14/2022 4:33 PM MANAGEMENT INSTRUCTOR): At this point were going to increase [...] effects. Assessment & Plan (07/29/2021 9:24 AM [facility]): The patient is a 71-year-old gentleman with [...] monitoring sotalol therapy 020 Paroxysmal atrial fibrillation ([facility]/HCC) 019 Chronic anticoagulation 02/12/2019 S/P coronary artery stent placement 02/08/2017 Mixed diabetic hyperlipidemi a associated with type 2 diabetes mellitus (CMS/HCC) 09/13/2016 Overview (10/29/2016): DM type 2 with diabetic dyslipidemia Iron deficiency anemia 09/13/2016 Overview (10/29/2016): Iron deficiency anemia, unspecified iron deficiency anemia type Hypertension associated with diabetes 08/18/2015 Overview (09/09/2016): HTN (hypertension), benign Coronary artery disease invo lving [place] coronary artery of [place] heart without angina pectoris 08/18/2015 Overview (09/09/2016): Coronary artery disease involving [place] coronary artery of [place] heart without angina pectoris Class 1 obesity [...] mellitus 08/18/2015 10/07/2021 Overview (09/09/2016): Mixed dyslipidemia Social History Tobacco Use Types Packs/Day Years [...] on file Legal Sex Male 9:16 AM MANAGEMENT INSTRUCTOR Gender Identity Male 11/29/2019 3:04 PM CDT Sexual Orientation Straight 11/29/2019 3: 04 PM CDT Last Filed Vital Signs Vital Sign Reading Time Taken Comments Blood Pressure 130/82 06/18/2024 9:05 AM MANAGEMENT INSTRUCTOR Pulse 85 06/18/2024 9:05 AM MANAGEMENT INSTRUCTOR Temperature 36.7 C (98 F) 01/11/2020 10:10 AM CDT Respiratory Rate 16 09/13/2022 3:36 PM CDT Oxygen Saturation 98% 06/18/2024 9:05 AM MANAGEMENT INSTRUCTOR Inhaled Oxygen Concentration - - Weight 105.4 kg (232 lb 4.8 oz) 06/18/2024 9:05 AM MANAGEMENT INSTRUCTOR Height 175.3 cm (5' 9 ) 06/18/2024 9:05 AM MANAGEMENT INSTRUCTOR Body Mass Index 34.3 06/18/2024 9:05 AM MANAGEMENT INSTRUCTOR Plan of Treatment Not on file Procedures Procedure Name Priority Date/Time Associated Diagnosis Comments POCT LIPID PANEL Routine 06/18/2024 4:15 PM MANAGEMENT INSTRUCTOR Coronary artery disease involving [place] coronary artery of [place] heart without angina pectoris BASIC METABOLIC PANEL Routine 01/24/2019 2:22 PM CDT from Last 3 Months or Most Recently Relevant to Health Maintenance Results * POCT lipid panel (06/18/2024 4:15 PM MANAGEMENT INSTRUCTOR) Cholesterol, POC 149 mg/dL Comment:GLU = 179 HDL, POC 18 mg/dL Triglycerides, POC 206 mg/dL LDL Cholesterol POC 90 mg/dL Chol/HDL Ratio, POC 5.0 Non-HDL Cholesterol, POC 131 mg/dL Cholesterol Total, POC 149 mg/dL Capillary blood 06/18/2024 4 :15 PM MANAGEMENT INSTRUCTOR us Marcell Ocampo MD POINT OF CARE [...] - 01/25/2019 8:12 AM CDT Performed at: [facility] [address] [id number] Corner Bead Operator: You Kingsley PhD, Phone: [phone] Specimen Comment: A courtesy copy of this report has been sent to Specimen Comment: [phone]. Jonnathan Crooks MD LAB BLOOD ORDERABLES Fin al Result [facility] - 01 from Last 3 Months or Most Recently Relevant to Health Maintenance Insurance MEDICARE SOL[employer] [facility] MEDICARE Address: [facility] [address] [place] [address] MEDICARE SOLUTIONS Care Teams Wood Cabinetmaker Relationship Specialty Start Date End Date Ranjan Mckee MD [address] [facility] [address] [place] [address] PCP - General 09/13/16
[2024-08-13 13:52] VITALS: BP 138/74; PULSE 72; RESP 16; TEMP 36.3; O2SAT 96
[2024-08-13] MEDS: LACTATED RINGERS 1,000 ML 150 ML IV CONT (14:04)
[2024-08-13 14:05] LABS: Glucose Point of Care 92 mg/dl (65-105)
--- NOTE | 2024-08-13 14:45 | WPDANESEPPF ---
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 Patient Data Age: 74 Gender: M Height: 1.75 m Weight: 104.2 kg Last Vital Signs Temp 36.3 C L 08/13/24 13:52 Pulse 72 08/13/24 13:52 Resp 16 08/13/24 13:52 BP 138/74 08/13/24 13:52 Pulse Ox 96 08/13/24 13:52 O2 Del Method Room Air 08/13/24 13:52 Allergies Allergy/AdvReac Type Severity Reaction Status Date / Time ramipril AdvReac Intermediate Cough Verified 08/13/24 13:49 RAFFI Inhibitors AdvReac Mild Cough Verified 08/13/24 13:49 Home Medications ?Medication ?Instructions ?Recorded ?Confirmed ?Type atorvastatin 40 mg tablet 40 mg PO DAILY 04/24/19 08/13/24 History calcium polycarbophil 625 mg 1,250 mg PO .qhs 04/24/19 08/13/24 History tablet (FiberCon) ferrous sulfate 325 mg (65 mg 325 mg PO BID 04/24/19 08/13/24 History iron) tablet rivaroxaban 20 mg tablet (Xarelto) 20 mg PO DAILY 04/24/19 08/13/24 History sotalol 80 mg tablet 80 mg PO BID 04/25/19 08/13/24 History finasteride 5 mg tablet 5 mg PO DAILY 04/09/20 08/13/24 History blood-glucose meter (Accu-Chek #1 ea 05/17/22 05/28/24 Rx Sirena Plus Meter) multivitamin 1 tablet PO DAILY 08/04/22 08/13/24 History fluticasone propionate 50 1 spray intranasal DAILY PRN 08/20/22 08/13/24 History mcg/actuation nasal Congestion spray,suspension (Flonase Allergy Relief) pen needle, diabetic 32 gauge x #50 ea 02/16/23 05/28/24 Rx 5/32 (BD Ultra-Fine Scarlet Pen Needle) aspirin 81 mg chewable tablet 81 mg PO DAILY 05/23/23 08/13/24 History lancets (Accu-Chek Fastclix Lancet #100 ea 10/07/23 05/28/24 Rx Drum) blood sugar diagnostic (Accu-Chek #100 strips 12/23/23 05/28/24 Rx Guide test strips) losartan 50 mg tablet 50 mg PO QAM #90 tabs 02/29/24 08/13/24 Rx omeprazole 40 mg capsule,delayed 40 mg PO DAILY #90 caps 04/23/24 08/13/24 Rx release semaglutide 2 mg/dose (8 mg/3 mL) 2 mg (0.75 mL) subcut WEEKLY #3 mL 05/07/24 08/13/24 Rx subcutaneous pen injector trazodone 100 mg tablet 100 mg PO HS #90 tabs 06/19/24 08/13/24 Rx Laboratory Tests 08/13/24 14:02 POC Capillary Glucose 92 mg/dl (65-105) Patient hx anesthesia problems: none Family hx anesthesia problems: none Results Review: All pre-operative results and documents have been reviewed as part of the pre-operative evaluation. 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 Chronic GERD Coronary artery disease involving [place] coronary artery of [place] heart Diabetes type 2, controlled Hypertensive heart disease without congestive heart failure Mixed hyperlipidemia Paroxysmal A-fib Right kidney mass Surgical History Surgical History Hx of lithotripsy History of coronary artery stent placement Social History Social History Smoking status: Never smoker Second hand tobacco smoke exposure: No Alcohol intake: current Drinks per week: 1 Alcohol use details: 1 glass wine/week Substance use: never Substance use type: does not use Living arrangements: with family Additional living arrangements comments: With sp Occupation/Education: retired Gender identity (if verbalized by the patient): Male Sexual Orientation (if Verbalized by the Patient): Straight or Heterosexual Spiritual care concerns: No Anes - Eval Final PreProcedure Day of Procedure 08/13/24 14:45 Patient weight: obese Heart: regular rate and rhythm Lungs: clear to auscultation Airway: Mallampati scale class II Neurological: alert and oriented Last oral intake: >/= 8 hours ASA classification: III Emergent: no Anesthetic plan: proceed Anesthesia type and monitoring: general GIVS and standard monitoring Results Review: All pre-operative results and documents have been reviewed as part of the pre-operative evaluation. Informed Consent: The patient's anesthetic plan and its attendant risks and benefits were discussed with the patient/family/POA. Questions were solicited and answers provided to the satisfaction of the patient/family/POA.
--- NOTE | 2024-08-13 14:46 | PM.HPGS ---
History of Present Illness History of Present Illness Consent: Risks, benefits, and alternatives have been discussed and questions answered. Patient agrees to proceed with procedure. 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 Chronic GERD Coronary artery disease involving [place] coronary artery of [place] heart Diabetes type 2, controlled Hypertensive heart disease without congestive heart failure Mixed hyperlipidemia Paroxysmal A-fib Right kidney mass Surgical History Surgical History Hx of lithotripsy History of coronary artery stent placement Social History Social History Smoking status: Never smoker Second hand tobacco smoke exposure: No Alcohol intake: current Drinks per week: 1 Alcohol use details: 1 glass wine/week Substance use: never Substance use type: does not use Living arrangements: with family Additional living arrangements comments: With sp Occupation/Education: retired Gender identity (if verbalized by the patient): Male Sexual Orientation (if Verbalized by the Patient): Straight or Heterosexual Spiritual care concerns: No Meds Home Medications and Allergies Home Medications ?Medication ?Instructions ?Recorded ?Confirmed ?Type atorvastatin 40 mg tablet 40 mg PO DAILY 04/24/19 08/13/24 History calcium polycarbophil 625 mg 1,250 mg PO .qhs 04/24/19 08/13/24 History tablet (FiberCon) ferrous sulfate 325 mg (65 mg 325 mg PO BID 04/24/19 08/13/24 History iron) tablet rivaroxaban 20 mg tablet (Xarelto) 20 mg PO DAILY 04/24/19 08/13/24 History sotalol 80 mg tablet 80 mg PO BID 04/25/19 08/13/24 History finasteride 5 mg tablet 5 mg PO DAILY 04/09/20 08/13/24 History blood-glucose meter (Accu-Chek #1 ea 05/17/22 05/28/24 Rx Sirena Plus Meter) multivitamin 1 tablet PO DAILY 08/04/22 08/13/24 History fluticasone propionate 50 1 spray intranasal DAILY PRN 08/20/22 08/13/24 History mcg/actuation nasal Congestion spray,suspension (Flonase Allergy Relief) pen needle, diabetic 32 gauge x #50 ea 02/16/23 05/28/24 Rx 5/32 (BD Ultra-Fine Scarlet Pen Needle) aspirin 81 mg chewable tablet 81 mg PO DAILY 05/23/23 08/13/24 History lancets (Accu-Chek Fastclix Lancet #100 ea 10/07/23 05/28/24 Rx Drum) blood sugar diagnostic (Accu-Chek #100 strips 12/23/23 05/28/24 Rx Guide test strips) losartan 50 mg tablet 50 mg PO QAM #90 tabs 02/29/24 08/13/24 Rx omeprazole 40 mg capsule,delayed 40 mg PO DAILY #90 caps 04/23/24 08/13/24 Rx release semaglutide 2 mg/dose (8 mg/3 mL) 2 mg (0.75 mL) subcut WEEKLY #3 mL 05/07/24 08/13/24 Rx subcutaneous pen injector trazodone 100 mg tablet 100 mg PO HS #90 tabs 06/19/24 08/13/24 Rx Allergies Allergy/AdvReac Type Severity Reaction Status Date / Time ramipril AdvReac Intermediate Cough Verified 08/13/24 13:49 RAFFI Inhibitors AdvReac Mild Cough Verified 08/13/24 13:49 Vital Signs Vital Signs - 24 hr 08/13/24 13:52 Temperature 97.4 F L Pulse Rate 72 Respiratory Rate 16 Blood Pressure 138/74 Pulse Oximetry 96 Oxygen Delivery Room Air Exam Const: General: comfortable and no acute distress HENMT: Face/Nose/Sinus: Normal nares present Eyes: General: appearance normal, both eyes and all related structures Neck: Neck: no JVD Resp: Auscultation: clear to auscultation bilaterally Cardio: Rate: regular rate Rhythm: regular rhythm GI: Inspection: non-distended GI Palp: Yes Soft to palpation Skin: General skin exam: normal color Neuro: Speech: normal speech Extrem: General: normal to inspection Psych: Mental Status: mental status grossly normal Assessment and Plan Assessment and plan (1) 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
[2024-08-13 15:04] VITALS: BP 128/82; PULSE 82; RESP 20; O2SAT 97
[2024-08-13 15:14] VITALS: BP 125/76; PULSE 75; RESP 18; O2SAT 96
[2024-08-13 15:18] LABS: Glucose Point of Care 91 mg/dl (65-105)
[2024-08-13 15:24] VITALS: BP 128/85; PULSE 72; RESP 18; O2SAT 96
== END 2024-08-13 15:35 | disposition home or self-care (01) ==
PROVIDERS: PCP Family Medicine; Referring Provider Physician Assistant; Visit Provider Internal Medicine Gastroenterology
PROC: 0DJ08ZZ Inspection of Upper Intestinal Tract, Via Natural or Artificial Opening Endoscopic (ICD-10-PCS; CPT 43239; principal; 2024-08-13 14:30)
DX: K22.70 Barrett's esophagus without dysplasia (principal); K44.9 Diaphragmatic hernia without obstruction or gangrene; E11.9 Type 2 diabetes mellitus without complications; E66.9 Obesity, unspecified; Z68.33 Body mass index [BMI] 33.0-33.9, adult
CPT/HCPCS: 43239; 82948; 88305; J2003; J2704; J7120

== ENCOUNTER 2024-09-27 09:06 | Outpatient (CLI) | payer MEDICARE, SELFPAY ==
--- OUTSIDE RECORDS SUMMARY | 2024-09-27 09:43 | XMS_ITS | Referral Summary ---
Author Organization [facility] [address] Address [address] [place] [address] Care Team Providers Care Canned Food Reconditioning Inspector Name Role Phone Ranjan Mckee MD Primary Care Provider Allergies Active Allergy Reactions Criticality Noted Date Comments Erich Inhibitors Medications traZODone (DESYREL) 100 mg tablet take 1 tablet (100MG) by oral route 2 times every day after meals 0 3 Active multivitamin tablet tablet take 1 tablet by oral route every day with food 0 0 3 Active omeprazole (PriLOSEC) 40 mg capsule take 1 capsule by oral route every day before a meal 0 0 7 Active ferrous sulfate (IRON) 325 mg (65 mg iron) capsule, extended release take 1 by Oral route once 0 0 7 Active Additional Information Patient taking differently: 2 times daily, Reported on 06/18/2024 polycarbophil (FIBERCON) 625 mg tablet Take 1 tablet (625 mg total) by mouth daily Active finasteride (PROSCAR) 5 mg tablet Take 1 tablet (5 mg total) by mouth daily Active losartan (COZAAR) 50 mg tablet Take 1 tablet (50 mg total) by mouth daily 30 tablet 0 Active Ozempic 1 mg/dose (4 mg/3 mL) pen injector injection INJECT 1 MG SUBCUTANEOUS EVERY WEEK 3 Active aspirin (Adult Low Dose Aspirin) 81 mg enteric coated tablet Take 1 tablet (81 mg total) by mouth daily 3 Active Xarelto 20 mg tablet TAKE 1 TABLET(20 MG) BY MOUTH DAILY 90 tablet 5 Active sotaloL (BETAPACE) 80 mg tablet TAKE 1 TABLET(80 MG) BY MOUTH TWICE DAILY 180 tablet 5 Active atorvastatin (LIPITOR) 40 mg tablet TAKE 1 TABLET(40 MG) BY MOUTH DAILY 90 tablet 5 Active Active Problems Problem Noted Date Diagnosed Date [...] is going to discuss this with his chief quality officer and get back with me. Assessment & Plan (04/14/2022 4:33 PM HEAD OF LOSS PREVENTION): At this point were going to increase [...] effects. Assessment & Plan (07/29/2021 9:24 AM HEAD OF LOSS PREVENTION): The patient is a 71-year-old gentleman with [...] monitoring sotalol therapy 020 Paroxysmal atrial fibrillation ([facility]/HCC) 019 Chronic anticoagulation 02/12/2019 S/P coronary artery stent placement 02/08/2017 Mixed diabetic hyperlipidemi a associated with type 2 diabetes mellitus ([facility]) 09/13/2016 Overview (10/29/2016): DM type 2 with diabetic dyslipidemia Iron deficiency anemia 09/13/2016 Overview (10/29/2016): Iron deficiency anemia, unspecified iron deficiency anemia type Hypertension associated with diabetes 08/18/2015 Overview (09/09/2016): HTN (hypertension), benign Coronary artery disease invo lving [place] coronary artery of [place] heart without angina pectoris 08/18/2015 Overview (09/09/2016): Coronary artery disease involving [place] coronary artery of [place] heart without angina pectoris Class 1 obesity [...] on file Legal Sex Male 9:16 AM HEAD OF LOSS PREVENTION Gender Identity Male 11/29/2019 3:04 PM CDT Sexual Orientation Straight 11/29/2019 3: 04 PM CDT Last Filed Vital Signs Vital Sign Reading Time Taken Comments Blood Pressure 130/82 06/18/2024 9:05 AM HEAD OF LOSS PREVENTION Pulse 85 06/18/2024 9:05 AM HEAD OF LOSS PREVENTION Temperature 36.7 C (98 F) 01/11/2020 10:10 AM CDT Respiratory Rate 16 09/13/2022 3:36 PM CDT Oxygen Saturation 98% 06/18/2024 9:05 AM HEAD OF LOSS PREVENTION Inhaled Oxygen Concentration - - Weight 105.4 kg (232 lb 4.8 oz) 06/18/2024 9:05 AM HEAD OF LOSS PREVENTION Height 175.3 cm (5' 9 ) 06/18/2024 9:05 AM HEAD OF LOSS PREVENTION Body Mass Index 34.3 06/18/2024 9:05 AM HEAD OF LOSS PREVENTION Plan of Treatment Not on file Procedures Procedure Name Priority Date/Time Associated Diagnosis Comments POCT LIPID PANEL Routine 06/18/2024 4:15 PM HEAD OF LOSS PREVENTION Coronary artery disease involving [place] coronary artery of [place] heart without angina pectoris BASIC METABOLIC PANEL Routine 01/24/2019 2:22 PM CDT from Last 3 Months or Most Recently Relevant to Health Maintenance Results * POCT lipid panel (06/18/2024 4:15 PM HEAD OF LOSS PREVENTION) Cholesterol, POC 149 mg/dL Comment:GLU = 179 HDL, POC 18 mg/dL Triglycerides, POC 206 mg/dL LDL Cholesterol POC 90 mg/dL Chol/HDL Ratio, POC 5.0 Non-HDL Cholesterol, POC 131 mg/dL Cholesterol Total, POC 149 mg/dL Capillary blood 06/18/2024 4 :15 PM HEAD OF LOSS PREVENTION Marcell Ocampo MD POINT OF CARE TEST [...] 8:12 AM CDT Performed at: - [facility] [address] [id number] Construction Helper: You Kinsgley PhD, Phone: [phone] Specimen Comment: A courtesy copy of this report has been sent to Specimen Comment: [phone]. Jonnathan Crooks MD LAB BLOOD ORDERABLES Fin al Result [facility] - 01 from Last 3 Months or Most Recently Relevant to Health Maintenance Insurance [facility] MEDICARE ADVANTAGE [facility] MEDICARE ADVANTAGE Care Teams Canned Food Reconditioning Inspector Relationship Specialty Start Date End Date Ranjan Mckee MD [address] [address] [facility] - General 09/13/16
--- OUTSIDE RECORDS SUMMARY | 2024-09-27 09:43 | XMS_ITS | Clinical Summary ---
Author Organization [facility] [address] Address [address] [place] [address] Care Team Providers Care Mold Machine Operator Name Role Phone Ranjan Mckee MD Primary [...] is going to discuss this with his sheriff's officer and get back with me. Assessment & Plan (04/14/2022 4:33 PM SALES TRAINING REPRESENTATIVE): At this point were going to increase [...] effects. Assessment & Plan (07/29/2021 9:24 AM SALES TRAINING REPRESENTATIVE): The patient is a 71-year-old gentleman with [...] monitoring sotalol therapy 020 Paroxysmal atrial fibrillation ([facility]/HCC) 019 Chronic anticoagulation 02/12/2019 S/P coronary artery stent placement 02/08/2017 Mixed diabetic hyperlipidemi a associated with type 2 diabetes mellitus ([facility]) 09/13/2016 Overview (10/29/2016): DM type 2 with diabetic dyslipidemia Iron deficiency anemia 09/13/2016 Overview (10/29/2016): Iron deficiency anemia, unspecified iron deficiency anemia type Hypertension associated with diabetes 08/18/2015 Overview (09/09/2016): HTN (hypertension), benign Coronary artery disease invo lving [place] coronary artery of [place] heart without angina pectoris 08/18/2015 Overview (09/09/2016): Coronary artery disease involving [place] coronary artery of [place] heart without angina pectoris Class 1 obesity [...] mellitus 08/18/2015 10/07/2021 Overview (09/09/2016): Mixed dyslipidemia Surgical History Surgery Date Site/Laterality Comments OTHER SURGICAL HISTORY : Coronary Stent Placement 2.75x23 and 2.5x15 JESSICA 02/15 ANGIOPLASTY KIDNEY STONE SURGERY [facility] Medical History Medical History Date Comments [...] on file Legal Sex Male 9:16 AM SALES TRAINING REPRESENTATIVE Gender Identity Male 11/29/2019 3:04 PM CDT Sexual Orientation Straight 11/29/2019 3: 04 PM CDT Obstetrics History Last Filed Vital Signs Vital Sign Reading Time Taken Comments Blood Pressure 130/82 06/18/2024 9:05 AM SALES TRAINING REPRESENTATIVE Pulse 85 06/18/2024 9:05 AM SALES TRAINING REPRESENTATIVE Temperature 36.7 C (98 F) 01/11/2020 10:10 AM CDT Respiratory Rate 16 09/13/2022 3:36 PM CDT Oxygen Saturation 98% 06/18/2024 9:05 AM SALES TRAINING REPRESENTATIVE Inhaled Oxygen Concentration - - Weight 105.4 kg (232 lb 4.8 oz) 06/18/2024 9:05 AM SALES TRAINING REPRESENTATIVE Height 175.3 cm (5' 9 ) 06/18/2024 9:05 AM SALES TRAINING REPRESENTATIVE Body Mass Index 34.3 06/18/2024 9:05 AM SALES TRAINING REPRESENTATIVE Plan of Treatment Health Maintenance Due Date [...] POCT LIPID PANEL Routine 06/18/2024 4:15 PM SALES TRAINING REPRESENTATIVE Coronary artery disease involving [place] coronary artery of [place] heart without angina pectoris BASIC METABOLIC PANEL Routine 01/24/2019 2:22 PM CDT from Last 3 Months or Most Recently Relevant to Health Maintenance Results * POCT lipid panel (06/18/2024 4:15 PM SALES TRAINING REPRESENTATIVE) Cholesterol, POC 149 mg/dL Comment:GLU = 179 HDL, POC 18 mg/dL Triglycerides, POC 206 mg/dL LDL Cholesterol POC 90 mg/dL Chol/HDL Ratio, POC 5.0 Non-HDL Cholesterol, POC 131 mg/dL Cholesterol Total, POC 149 mg/dL Capillary blood 06/18/2024 4 :15 PM SALES TRAINING REPRESENTATIVE Marcell Ocampo MD POINT OF CARE TEST [...] - 10.2 mg/dL [facility] - 01 01/24/2019 2:2 2 PM CDT 01/24/2019 Narrative [facility] - 01/25/2019 8:12 AM CDT Performed at: 01 - [facility] [id number] Digital Strategist Senior Manager: You Kingsley PhD, Phone: [phone] Specimen Comment: A courtesy copy of this report has been sent to Specimen Comment: [phone]. Jonnathan Crooks MD LAB BLOOD ORDERABLES Fin al Result [facility] - 01 from Last 3 Months or Most Recently Relevant to Health Maintenance Insurance [facility] MEDICARE ADVANTAGE [facility] MEDICARE Address: [address] [address] [place] [address] [facility] MEDICARE ADVANTAGE [facility] MEDICARE Address: [address] [address] [place] [address] Care Teams Mold Machine Operator Relationship Specialty Start Date End Date Ranjan Mckee MD [address] [place] [address] PCP - General 09/13/16
== END 2024-09-27 09:07 | disposition home or self-care (01) ==
LOC: ANHAUDIO 09:06
PROVIDERS: PCP Family Medicine; Visit Provider Family Medicine
DX: H93.13 Tinnitus, bilateral (principal); H90.3 Sensorineural hearing loss, bilateral
CPT/HCPCS: 92557; 92567

== ENCOUNTER 2025-01-23 09:13 | Outpatient (CLI) | payer MEDICARE, SELFPAY ==
--- NOTE | ~2025-01-23 | XR_ITS ---
EXAM/PROCEDURE: XR abdomen/kub 1V - 01/23/2025 9:22 CDT HISTORY: 75 years old Male with Calcium kidney stone; YEARLY CHECK UP COMPARISON: 01/18/2025 TECHNIQUE: AP view(s) of the abdomen. FINDINGS: The bowel gas pattern is normal. There is no evidence for obstruction. No free intraperitoneal air is identified on this supine radiograph. Bilateral renal calculi measuring up to 0.9 cm. The visualized soft tissue shadows are unremarkable. No gross bony abnormalities are seen. Visualized portions of lung bases are clear. IMPRESSION: Bilateral renal stones Reviewed, dictated and finalized at location A. IMPRESSION: Bilateral renal stones
--- OUTSIDE RECORDS SUMMARY | 2025-01-23 09:24 | XMS_ITS | Clinical Summary ---
Author Organization [facility] [address] Address [address] [place] [address] Care Team Providers Care Plating Foreman Name Role Phone Ranjan Mckee MD Primary [...] 7 Active Additional Information Patient taking differently: 325 mg 2 times daily, Reported on 12/24/2024 polycarbophil (FIBERCON) 625 mg tablet Take 1 [...] is going to discuss this with his manager commission and get back with me. Assessment & Plan (04/14/2022 4:33 PM PARKING INSPECTOR): At this point were going to increase [...] effects. Assessment & Plan (07/29/2021 9:24 AM PARKING INSPECTOR): The patient is a 71-year-old gentleman with [...] monitoring sotalol therapy 020 Paroxysmal atrial fibrillation ([facility]/HCC) 019 Chronic anticoagulation 02/12/2019 S/P coronary artery stent placement 02/08/2017 Mixed diabetic hyperlipidemi a associated with type 2 diabetes mellitus ([facility]) 09/13/2016 Overview (10/29/2016): DM type 2 with diabetic dyslipidemia Iron deficiency anemia 09/13/2016 Overview (10/29/2016): Iron deficiency anemia, unspecified iron deficiency anemia type Hypertension associated with diabetes 08/18/2015 Overview (09/09/2016): HTN (hypertension), benign Coronary artery disease invo lving twenty-nine palms coronary artery of twenty-nine palms heart without angina pectoris 08/18/2015 Overview (09/09/2016): Coronary artery disease involving twenty-nine palms coronary artery of twenty-nine [place] heart without angina pectoris Class 1 obesity [...] Encounters Date Type Department Care Team Description 12/24/2024 9:15 AM CDT Office Visit [facility] Card[facility] [address] [place] [address] Marcell Ocampo MD Coronary artery disease involving twenty-nine palms coronary artery of twenty-nine palms heart without angina pectoris (Primary Dx); Paroxysmal atrial fibrillation (CMS/HCC) (HCC); S/P coronary artery stent placement from Last 3 Months Surgical History Surgery Date Site/Laterality Comments OTHER SURGICAL HISTORY : Coronary Stent Placement 2.75x23 and 2.5x15 JESSICA 02/15 [address]Y [address] SURGERY [facility] Medical History Medical History Date Comments Hypertension [...] on file Legal Sex Male 9:16 AM PARKING INSPECTOR Gender Identity Male 11/29/2019 3:04 PM CDT Sexual Orientation Straight 11/29/2019 3: 04 PM CDT Obstetrics History Last Filed Vital Signs Vital Sign Reading Time Taken Comments Blood Pressure 124/70 12/24/2024 9:58 AM CDT Pulse 77 12/24/2024 9:58 AM CDT Temperature 36.7 C (98 F) 01/11/2020 10:10 AM CDT Respiratory Rate 16 09/13/2022 3:36 PM CDT Oxygen Saturation 96% 12/24/2024 9:58 AM CDT Inhaled Oxygen Concentration - - Weight 105.3 kg (232 lb 3.2 oz) 12/24/2024 9:58 AM CDT Height 175.3 cm (5' 9) 12/24/2024 9:58 AM CDT Body Mass Index 34.29 12/24/2024 9:58 AM CDT Plan of Treatment Health Maintenance Due Date [...] 2015 eGFR 01/25/2020 01/24/2019 Influenza Vaccine (#1) 2025 9, 02/28/2018, 02/22/2017, Additional history exists Lipid Panel 06/18/2025 06/18/2024, 11/2 06/2022, 04/14/2022, Additional history exists Pneumococcal vaccine 65+ Completed 03/09/2019, 07/2017 Procedures Procedure Name Priority Date/Time Associated Diagnosis Comments POCT LIPID PANEL Routine 06/18/2024 4:15 PM PARKING INSPECTOR Coronary artery disease involving twenty-nine palms coronary artery of twenty-nine palms heart without angina pectoris BASIC METABOLIC PANEL Routine 01/24/2019 2:22 PM CDT from Last 3 Months or Most Recently Relevant to Health Maintenance Results * POCT lipid panel (06/18/2024 4:15 PM PARKING INSPECTOR) Cholesterol, POC 149 mg/dL Comment:GLU = 179 HDL, POC 18 mg/dL Triglycerides, POC 206 mg/dL LDL Cholesterol POC 90 mg/dL Chol/HDL Ratio, POC 5.0 Non-HDL Cholesterol, POC 131 mg/dL Cholesterol Total, POC 149 mg/dL Capillary blood 06/18/2024 4 :15 PM PARKING INSPECTOR us Marcell Ocampo MD POINT OF CARE [...] - 01/25/2019 8:12 AM CDT Performed at: [facility] [id number] Mammalogy Teacher: You Kingsley PhD, Phone: [phone] Specimen Comment: A courtesy copy of this report has been sent to [facility] Comment: [phone]. Jonnathan Crooks MD LAB BLOOD ORDERABLES Fin al Result [facility] - 01 from Last 3 Months or Most Recently Relevant to Health Maintenance Insurance [employer] MEDICARE ADVANTAGE [facility] MEDICARE ADVANTAGE Care Teams Plating Foreman Relationship Specialty Start Date End Date Ranjan Mckee MD [address] [place] [id number] PCP - General 09/13/16
== END 2025-01-23 09:14 | disposition home or self-care (01) ==
LOC: ANHIMG 09:17
PROVIDERS: PCP Family Medicine; Visit Provider Urology
DX: N20.0 Calculus of kidney (principal)
CPT/HCPCS: 74018